=== PATIENT | male | born 1970 | race Caucasian/White ===

== ENCOUNTER 2021-06-12 11:06 | Inpatient (IN) | payer OTHER ==
[2021-06-12 11:37] VITALS: BMI 28.4
[2021-06-12] MEDS ORDERED: MENTHOL/PHENOL 1 EACH UD MM PRN (12:21)
[2021-06-12] MEDS ORDERED: LORazepam 1 MG TABLET PO PRN (12:21)
[2021-06-12] MEDS ORDERED: MAG HYDROX/AL HYDROX/SIMETH 30 ML UNIT-DOSE CUP PO PRN (12:21)
[2021-06-12] MEDS ORDERED: METHOCARBAMOL 500 MG TABLET PO PRN (12:21)
[2021-06-12] MEDS ORDERED: ONDANSETRON *ODT* 4 MG TABLET SL PRN (12:21)
[2021-06-12] MEDS ORDERED: MAGNESIUM HYDROX 2400MG/30ML ORAL SUSPENSION 30 ML CUP PO PRN (12:21)
[2021-06-12] MEDS ORDERED: BISMUTH SUBSALICYLATE 524 MG/30 ML PO PRN (12:21)
[2021-06-12] MEDS ORDERED: IBUPROFEN 400 MG TABLET (FP) PO PRN (12:21)
[2021-06-12] MEDS ORDERED: MAGNESIUM CITRATE 300 ML BOTTLE PO PRN (12:21)
[2021-06-12] MEDS ORDERED: ACETAMINOPHEN 325 MG TABLET (FP) PO PRN ×2 (12:21)
[2021-06-12] MEDS: hydrOXYzine PAMOATE 25 MG CAPSULE (FP) PO SCH ×3 (14:30→23:11)
[2021-06-12 15:11] LABS: HEMATOCRIT 42.3 % (35.4-49); HEMOGLOBIN 14.3 GM/dL (11.7-16.9); MCH 29.2 pg (25.7-33.7); MCHC 33.8 g/dl (32.0-35.9); MEAN CELL VOLUME 86.4 fl (80-96); MEAN PLT VOLUME 10.1 fl (7.5-11.1); PLATELET COUNT 272 10^3/uL (134-434); RBC 4.89 M/mm3 (4.00-5.60); RDW 13.5 % (11.9-15.9); WHITE BLOOD COUNT 9.8 K/mm3 (4.0-10.0)
[2021-06-12 15:24] LABS: CALCIUM 9.2 mg/dL (8.5-10.1)
[2021-06-12 15:25] LABS: ALBUMIN 3.6 g/dl (3.4-5.0)
[2021-06-12 15:28] LABS: CREATININE 0.9 mg/dL (0.55-1.3)
[2021-06-12 15:30] LABS: BILIRUBIN,TOTAL 0.5 mg/dL (0.2-1); TOT PROT 6.4 g/dl (6.4-8.2)
[2021-06-12] MEDS: LORazepam 2 MG TABLET PO SCH ×2 (17:56→23:11)
[2021-06-12] MEDS ORDERED: MELATONIN 5 MG TABLETS PO SCH (22:00)
[2021-06-12] MEDS ORDERED: THIAMINE HCL 100 MG TABLET (FP) PO SCH (22:00)
[2021-06-13] MEDS: LORazepam 2 MG TABLET PO SCH ×2 (05:53→10:19)
[2021-06-13] MEDS: hydrOXYzine PAMOATE 25 MG CAPSULE (FP) PO SCH ×3 (05:53→14:00)
[2021-06-13 14:09] VITALS: BP 99/61; PULSE 66; TEMP 97.5
[2021-06-14] MEDS ORDERED: LORazepam 1 MG TABLET PO SCH (05:00)
[2021-06-15] MEDS ORDERED: LORazepam 0.5 MG TABLET PO PRN
[2021-06-15] MEDS ORDERED: LORazepam 0.5 MG TABLET PO SCH (05:00)
[2021-06-16] MEDS ORDERED: LORazepam 0.5 MG TABLET PO ONE (05:00)
== END 2021-06-13 13:38 | disposition left against medical advice (07) | DRG 770 ==
LOC: YASAS 11:06 → Y3N 12:05
PROVIDERS: ADMIT Allergy & Immunology; ATTEND Allergy & Immunology
PROC: HZ2ZZZZ Detoxification Services for Substance Abuse Treatment (ICD-10-PCS; principal; 2021-06-12)
DX: F10.230 Alcohol dependence with withdrawal, uncomplicated (principal); F14.10 Cocaine abuse, uncomplicated
CPT/HCPCS: 36415; 80053; 85027; 86780; C9803; U0003; U0005

== ENCOUNTER 2022-07-07 09:48 | Inpatient (IN) | payer OTHER ==
[2022-07-07 10:43] VITALS: BMI 25.0
[2022-07-07] MEDS ORDERED: chlordiazePOXIDE HCL 25 MG CAPSULE PO PRN (10:59)
[2022-07-07] MEDS ORDERED: MAGNESIUM CITRATE 300 ML BOTTLE PO PRN (11:05)
[2022-07-07] MEDS ORDERED: LOPERAMIDE HCL 2 MG CAPSULE PO PRN (11:05)
[2022-07-07] MEDS ORDERED: ONDANSETRON *ODT* 4 MG TABLET SL PRN (11:05)
[2022-07-07] MEDS ORDERED: IBUPROFEN 400 MG TABLET (FP) PO PRN (11:05)
[2022-07-07] MEDS ORDERED: MAG HYDROX/AL HYDROX/SIMETH 30 ML UNIT-DOSE CUP PO PRN (11:05)
[2022-07-07] MEDS ORDERED: BISMUTH SUBSALICYLATE 262 MG/15 ML BTL PO PRN (11:05)
[2022-07-07] MEDS ORDERED: METHOCARBAMOL 500 MG TABLET PO PRN (11:05)
[2022-07-07] MEDS ORDERED: IBUPROFEN 600 MG TABLET (FP) PO PRN (11:05)
[2022-07-07] MEDS ORDERED: hydrOXYzine PAMOATE 25 MG CAPSULE (FP) PO PRN (11:05)
[2022-07-07] MEDS ORDERED: MAGNESIUM HYDROX 2400MG/30ML ORAL SUSPENSION 30 ML CUP PO PRN (11:05)
[2022-07-07] MEDS ORDERED: NICOTINE 10 MG CARTRIDGE (INHALER) IH PRN (11:05)
[2022-07-07] MEDS ORDERED: ACETAMINOPHEN 325 MG TABLET (FP) PO PRN ×2 (11:05)
[2022-07-07] MEDS ORDERED: DICYCLOMINE HCL 10 MG CAPSULE PO PRN (11:05)
[2022-07-07] MEDS ORDERED: BENZOCAINE/MENTHOL (CHLORASEPTIC ) LOZENGE MM PRN (11:05)
[2022-07-07] MEDS ORDERED: NALOXONE HCL (KLOXXADO) 8 MG SPRAY NS PRN (11:05)
[2022-07-07] MEDS ORDERED: chlordiazePOXIDE HCL 25 MG CAPSULE ONE (11:28)
[2022-07-07] MEDS: chlordiazePOXIDE HCL 25 MG CAPSULE PO SCH ×3 (11:34→22:12)
[2022-07-07 17:25] LABS: HEMATOCRIT 45.8 % (35.4-49); HEMOGLOBIN 15.4 GM/dL (11.7-16.9); MCH 31.4 pg (25.7-33.7); MCHC 33.7 g/dl (32.0-35.9); MEAN CELL VOLUME 93.2 fl (80-96); MEAN PLT VOLUME 8.9 fl (7.5-11.1); PLATELET COUNT 300 10^3/uL (134-434); RBC 4.91 M/mm3 (4.00-5.60); RDW 14.7 % (11.9-15.9); WHITE BLOOD COUNT 8.8 K/mm3 (4.0-10.0)
[2022-07-07] MEDS: THIAMINE HCL 100 MG TABLET (FP) PO SCH (22:12)
[2022-07-07] MEDS: MELATONIN 5 MG TABLETS PO SCH (22:12)
[2022-07-08] MEDS: chlordiazePOXIDE HCL 25 MG CAPSULE PO SCH ×4 (05:17→22:21)
[2022-07-08] MEDS: PRENATAL VITAMINS W/ FOLIC ACID TABLET (FP) PO SCH (10:38)
[2022-07-08 14:34] LABS: ALBUMIN 3.3 g/dl (3.4-5.0); BLOOD UREA NITROGEN 12.7 mg/dL (7-18)
[2022-07-08 14:37] LABS: CREATININE 0.7 mg/dL (0.55-1.3)
[2022-07-08 14:38] LABS: BILIRUBIN,TOTAL 0.5 mg/dL (0.2-1)
[2022-07-08 14:39] LABS: TOT PROT 5.8 g/dl (6.4-8.2)
[2022-07-08] MEDS: THIAMINE HCL 100 MG TABLET (FP) PO SCH (22:21)
[2022-07-08] MEDS: MELATONIN 5 MG TABLETS PO SCH (22:21)
[2022-07-08 23:16] LABS: URINE APPEARANCE CLEAR; URINE BILIRUBIN NEGATIVE (NEGATIVE); URINE COLOR YELLOW; URINE GLUCOSE (UA) NEGATIVE (NEGATIVE); URINE KETONE NEGATIVE (NEGATIVE); URINE LEUK ESTERASE NEGATIVE (NEGATIVE); URINE NITRITE NEGATIVE (NEGATIVE); URINE PROTEIN NEGATIVE (NEGATIVE); URINE UROBILINOGEN 0.2 mg/dL (0.2-1.0)
[2022-07-09] MEDS: chlordiazePOXIDE HCL 25 MG CAPSULE PO SCH ×4 (05:13→22:06)
[2022-07-09] MEDS: PRENATAL VITAMINS W/ FOLIC ACID TABLET (FP) PO SCH (10:36)
[2022-07-09 20:55] VITALS: BP 123/75; PULSE 81; RESP 16; TEMP 97.3
[2022-07-09] MEDS ORDERED: SUVOREXANT 10 MG TABLET PO PRN (22:00)
[2022-07-09] MEDS: MELATONIN 5 MG TABLETS PO SCH (22:07)
[2022-07-09] MEDS: THIAMINE HCL 100 MG TABLET (FP) PO SCH (22:07)
[2022-07-10] MEDS ORDERED: chlordiazePOXIDE HCL 10 MG CAPSULE PO PRN
[2022-07-10] MEDS ORDERED: chlordiazePOXIDE HCL 10 MG CAPSULE PO SCH (05:00)
[2022-07-11] MEDS ORDERED: chlordiazePOXIDE HCL 10 MG CAPSULE PO SCH (05:00)
[2022-07-12] MEDS ORDERED: chlordiazePOXIDE HCL 10 MG CAPSULE PO ONE (05:00)
== END 2022-07-09 23:43 | disposition left against medical advice (07) | DRG 770 ==
LOC: YASAS 09:48 → Y3N 11:40
PROVIDERS: ADMIT Allergy & Immunology; ATTEND Surgery
PROC: HZ2ZZZZ Detoxification Services for Substance Abuse Treatment (ICD-10-PCS; principal; 2022-07-07)
DX: F10.230 Alcohol dependence with withdrawal, uncomplicated (principal); F14.20 Cocaine dependence, uncomplicated; F12.10 Cannabis abuse, uncomplicated; F17.210 Nicotine dependence, cigarettes, uncomplicated; G47.00 Insomnia, unspecified; R73.03 Prediabetes
CPT/HCPCS: 36415; 80053; 81003; 82962; 85027; 86780; 87811; C9803-CS; Q0162; U0003; U0005

== ENCOUNTER 2022-07-23 02:12 | Inpatient (IN) | payer OTHER ==
[2022-07-23 02:42] VITALS: BMI 25.0
[2022-07-23] MEDS ORDERED: LOPERAMIDE HCL 2 MG CAPSULE PO PRN (02:49)
[2022-07-23] MEDS ORDERED: NALOXONE HCL (KLOXXADO) 8 MG SPRAY NS PRN (02:49)
[2022-07-23] MEDS ORDERED: IBUPROFEN 400 MG TABLET (FP) PO PRN (02:49)
[2022-07-23] MEDS ORDERED: ACETAMINOPHEN 325 MG TABLET (FP) PO PRN ×2 (02:49)
[2022-07-23] MEDS ORDERED: chlordiazePOXIDE HCL 25 MG CAPSULE PO PRN (02:49)
[2022-07-23] MEDS ORDERED: MAGNESIUM CITRATE 300 ML BOTTLE PO PRN (02:49)
[2022-07-23] MEDS ORDERED: ONDANSETRON *ODT* 4 MG TABLET SL PRN (02:49)
[2022-07-23] MEDS ORDERED: P-EPHED 60MG/TRIPROLIDI 2.5MG TABLET PO PRN (02:49)
[2022-07-23] MEDS ORDERED: DICYCLOMINE HCL 10 MG CAPSULE PO PRN (02:49)
[2022-07-23] MEDS ORDERED: IBUPROFEN 600 MG TABLET (FP) PO PRN (02:49)
[2022-07-23] MEDS ORDERED: BISMUTH SUBSALICYLATE 524 MG/30 ML PO PRN (02:49)
[2022-07-23] MEDS ORDERED: chlordiazePOXIDE HCL 25 MG CAPSULE PO ONE (02:49)
[2022-07-23] MEDS ORDERED: MAGNESIUM HYDROX 2400MG/30ML ORAL SUSPENSION 30 ML CUP PO PRN (02:49)
[2022-07-23] MEDS ORDERED: NICOTINE POLACRILEX 2 MG GUM BUC PRN (02:49)
[2022-07-23] MEDS ORDERED: BENZOCAINE/MENTHOL (CHLORASEPTIC ) LOZENGE MM PRN (02:49)
[2022-07-23] MEDS ORDERED: MAG HYDROX/AL HYDROX/SIMETH 30 ML UNIT-DOSE CUP PO PRN (02:49)
[2022-07-23] MEDS: chlordiazePOXIDE HCL 25 MG CAPSULE PO SCH ×4 (05:25→22:55)
[2022-07-23] MEDS: PRENATAL VITAMINS W/ FOLIC ACID TABLET (FP) PO SCH (10:33)
[2022-07-23] MEDS: NICOTINE 21 MG/24 HOURS TOPICAL PATCH TD SCH (10:35)
[2022-07-23] MEDS: THIAMINE HCL 100 MG TABLET (FP) PO SCH (22:55)
[2022-07-23] MEDS: MELATONIN 5 MG TABLETS PO SCH (22:55)
[2022-07-24] MEDS: chlordiazePOXIDE HCL 25 MG CAPSULE PO SCH ×4 (05:27→22:31)
[2022-07-24] MEDS: NICOTINE 21 MG/24 HOURS TOPICAL PATCH TD SCH (10:10)
[2022-07-24] MEDS: PRENATAL VITAMINS W/ FOLIC ACID TABLET (FP) PO SCH (10:10)
[2022-07-24 11:56] LABS: HEMATOCRIT 46.9 % (35.4-49); HEMOGLOBIN 15.7 GM/dL (11.7-16.9); MCH 31.4 pg (25.7-33.7); MCHC 33.6 g/dl (32.0-35.9); MEAN CELL VOLUME 93.4 fl (80-96); MEAN PLT VOLUME 9.2 fl (7.5-11.1); PLATELET COUNT 333 10^3/uL (134-434); RBC 5.02 M/mm3 (4.00-5.60); WHITE BLOOD COUNT 7.4 K/mm3 (4.0-10.0)
[2022-07-24 12:12] LABS: CALCIUM 8.9 mg/dL (8.5-10.1)
[2022-07-24 12:14] LABS: ALBUMIN 3.3 g/dl (3.4-5.0); BLOOD UREA NITROGEN 13.1 mg/dL (7-18)
[2022-07-24 12:16] LABS: CREATININE 0.6 mg/dL (0.55-1.3)
[2022-07-24 12:18] LABS: BILIRUBIN,TOTAL 0.3 mg/dL (0.2-1); TOT PROT 5.7 g/dl (6.4-8.2)
[2022-07-24] MEDS: THIAMINE HCL 100 MG TABLET (FP) PO SCH (22:30)
[2022-07-24] MEDS: MELATONIN 5 MG TABLETS PO SCH (22:30)
[2022-07-24] MEDS: SUVOREXANT 10 MG TABLET PO PRN (22:31)
[2022-07-25] MEDS ORDERED: chlordiazePOXIDE HCL 10 MG CAPSULE PO PRN
[2022-07-25] MEDS: chlordiazePOXIDE HCL 10 MG CAPSULE PO SCH ×4 (05:31→22:15)
[2022-07-25] MEDS: PRENATAL VITAMINS W/ FOLIC ACID TABLET (FP) PO SCH (11:11)
[2022-07-25] MEDS: NICOTINE 21 MG/24 HOURS TOPICAL PATCH TD SCH (11:11)
[2022-07-25] MEDS: METHOCARBAMOL 500 MG TABLET PO PRN ×2 (11:12→17:36)
[2022-07-25] MEDS: MELATONIN 5 MG TABLETS PO SCH (22:15)
[2022-07-25] MEDS: SUVOREXANT 10 MG TABLET PO PRN (22:15)
[2022-07-25] MEDS: THIAMINE HCL 100 MG TABLET (FP) PO SCH (22:15)
[2022-07-25] MEDS: guaiFENesin 200 MG/10 ML 10 ML UNIT-DOSE CUPS PO PRN (23:35)
[2022-07-26] MEDS: chlordiazePOXIDE HCL 10 MG CAPSULE PO SCH ×2 (05:30→17:46)
[2022-07-26] MEDS: METHOCARBAMOL 500 MG TABLET PO PRN ×3 (05:31→23:49)
[2022-07-26] MEDS: PRENATAL VITAMINS W/ FOLIC ACID TABLET (FP) PO SCH (10:39)
[2022-07-26] MEDS: guaiFENesin 200 MG/10 ML 10 ML UNIT-DOSE CUPS PO PRN (10:39)
[2022-07-26] MEDS: NICOTINE 21 MG/24 HOURS TOPICAL PATCH TD SCH (10:39)
[2022-07-26] MEDS ORDERED: hydrOXYzine PAMOATE 50 MG CAPSULE (FP) PO ONE (15:18)
[2022-07-26] MEDS: THIAMINE HCL 100 MG TABLET (FP) PO SCH (21:00)
[2022-07-26] MEDS: SUVOREXANT 10 MG TABLET PO PRN (21:00)
[2022-07-26] MEDS: MELATONIN 5 MG TABLETS PO SCH (21:00)
[2022-07-26] MEDS ORDERED: hydrOXYzine PAMOATE 25 MG CAPSULE (FP) PO PRN (22:00)
[2022-07-27] MEDS ORDERED: chlordiazePOXIDE HCL 10 MG CAPSULE PO ONE (05:00)
[2022-07-27] MEDS: METHOCARBAMOL 500 MG TABLET PO PRN (06:12)
[2022-07-27 09:09] VITALS: BP 125/86; PULSE 67; RESP 18; TEMP 97.7
[2022-07-27] MEDS: PRENATAL VITAMINS W/ FOLIC ACID TABLET (FP) PO SCH (10:30)
[2022-07-27] MEDS: NICOTINE 21 MG/24 HOURS TOPICAL PATCH TD SCH (10:31)
[2022-07-27 15:41] LABS: PH,URINE 5.5 (5.0-8.0); URINE APPEARANCE CLEAR; URINE BILIRUBIN NEGATIVE (NEGATIVE); URINE COLOR YELLOW; URINE GLUCOSE (UA) NEGATIVE (NEGATIVE); URINE KETONE NEGATIVE (NEGATIVE); URINE LEUK ESTERASE NEGATIVE (NEGATIVE); URINE NITRITE NEGATIVE (NEGATIVE); URINE PROTEIN NEGATIVE (NEGATIVE); URINE UROBILINOGEN 0.2 mg/dL (0.2-1.0)
== END 2022-07-27 12:55 | disposition other institution (70) | DRG 774 ==
LOC: YASAS 02:12 → Y3N 02:51
PROVIDERS: ADMIT Allergy & Immunology; ATTEND Allergy & Immunology
PROC: HZ2ZZZZ Detoxification Services for Substance Abuse Treatment (ICD-10-PCS; principal; 2022-07-23)
DX: F10.230 Alcohol dependence with withdrawal, uncomplicated (principal); F14.20 Cocaine dependence, uncomplicated; F12.20 Cannabis dependence, uncomplicated; F17.210 Nicotine dependence, cigarettes, uncomplicated; G47.00 Insomnia, unspecified; E87.8 Other disorders of electrolyte and fluid balance, not elsewhere classified; E46 Unspecified protein-calorie malnutrition; Z68.25 Body mass index [BMI] 25.0-25.9, adult; Z56.0 Unemployment, unspecified; Z59.00 Homelessness unspecified
CPT/HCPCS: 36415; 80053; 81003; 85027; 86780; C9803-CS; U0003; U0005

== ENCOUNTER 2022-08-07 05:33 | Inpatient (IN) | payer OTHER ==
[2022-08-07] MEDS ORDERED: LOPERAMIDE HCL 2 MG CAPSULE PO PRN (06:22)
[2022-08-07] MEDS ORDERED: MAG HYDROX/AL HYDROX/SIMETH 30 ML UNIT-DOSE CUP PO PRN (06:22)
[2022-08-07] MEDS ORDERED: IBUPROFEN 400 MG TABLET (FP) PO PRN (06:22)
[2022-08-07] MEDS ORDERED: MAGNESIUM HYDROX 2400MG/30ML ORAL SUSPENSION 30 ML CUP PO PRN (06:22)
[2022-08-07] MEDS ORDERED: P-EPHED 60MG/TRIPROLIDI 2.5MG TABLET PO PRN (06:22)
[2022-08-07] MEDS ORDERED: BENZOCAINE/MENTHOL (CHLORASEPTIC ) LOZENGE MM PRN (06:22)
[2022-08-07] MEDS ORDERED: DICYCLOMINE HCL 10 MG CAPSULE PO PRN (06:22)
[2022-08-07] MEDS ORDERED: ACETAMINOPHEN 325 MG TABLET (FP) PO PRN ×2 (06:22)
[2022-08-07] MEDS ORDERED: guaiFENesin 200 MG/10 ML 10 ML UNIT-DOSE CUPS PO PRN (06:22)
[2022-08-07] MEDS ORDERED: ONDANSETRON *ODT* 4 MG TABLET SL PRN (06:22)
[2022-08-07] MEDS ORDERED: IBUPROFEN 600 MG TABLET (FP) PO PRN (06:22)
[2022-08-07] MEDS ORDERED: BISMUTH SUBSALICYLATE 524 MG/30 ML PO PRN (06:22)
[2022-08-07] MEDS ORDERED: POLYETHYLENE GLYCOL (HEALTHYLAX) 3350 17 GM PACKET PO PRN (06:22)
[2022-08-07] MEDS ORDERED: chlordiazePOXIDE HCL 25 MG CAPSULE PO PRN (06:24)
[2022-08-07 07:15] VITALS: BMI 26.3
[2022-08-07] MEDS ORDERED: chlordiazePOXIDE HCL 25 MG CAPSULE PO ONE (08:00)
[2022-08-07] MEDS ORDERED: chlordiazePOXIDE HCL 25 MG CAPSULE ONE (09:54)
[2022-08-07] MEDS: chlordiazePOXIDE HCL 25 MG CAPSULE PO SCH ×3 (10:13→22:05)
[2022-08-07] MEDS: PRENATAL VITAMINS W/ FOLIC ACID TABLET (FP) PO SCH (14:11)
[2022-08-07] MEDS: THIAMINE HCL 100 MG TABLET (FP) PO SCH (22:05)
[2022-08-07] MEDS: MELATONIN 5 MG TABLETS PO PRN (22:06)
[2022-08-07] MEDS: NICOTINE POLACRILEX 2 MG GUM BUC PRN (22:08)
[2022-08-08] MEDS: chlordiazePOXIDE HCL 25 MG CAPSULE PO SCH ×4 (05:33→22:05)
[2022-08-08] MEDS: NICOTINE POLACRILEX 2 MG GUM BUC PRN ×2 (10:41→18:09)
[2022-08-08] MEDS: PRENATAL VITAMINS W/ FOLIC ACID TABLET (FP) PO SCH (10:41)
[2022-08-08] MEDS: METHOCARBAMOL 500 MG TABLET PO PRN (18:05)
[2022-08-08] MEDS: MELATONIN 5 MG TABLETS PO PRN (22:05)
[2022-08-08] MEDS: THIAMINE HCL 100 MG TABLET (FP) PO SCH (22:05)
[2022-08-08] MEDS: hydrOXYzine PAMOATE 25 MG CAPSULE (FP) PO PRN (22:06)
[2022-08-09] MEDS: chlordiazePOXIDE HCL 25 MG CAPSULE PO SCH ×2 (05:49→10:29)
[2022-08-09] MEDS: METHOCARBAMOL 500 MG TABLET PO PRN (05:50)
[2022-08-09] MEDS: PRENATAL VITAMINS W/ FOLIC ACID TABLET (FP) PO SCH (10:29)
[2022-08-09] MEDS: hydrOXYzine PAMOATE 25 MG CAPSULE (FP) PO PRN (10:29)
[2022-08-09 13:06] VITALS: BP 126/77; PULSE 16; RESP 82; TEMP 97.5
[2022-08-10] MEDS ORDERED: chlordiazePOXIDE HCL 10 MG CAPSULE PO PRN
[2022-08-10] MEDS ORDERED: chlordiazePOXIDE HCL 10 MG CAPSULE PO SCH (05:00)
[2022-08-11] MEDS ORDERED: chlordiazePOXIDE HCL 10 MG CAPSULE PO SCH (05:00)
[2022-08-12] MEDS ORDERED: chlordiazePOXIDE HCL 10 MG CAPSULE PO ONE (05:00)
== END 2022-08-09 14:26 | disposition left against medical advice (07) | DRG 770 ==
LOC: YASAS 05:33 → Y3N 10:30
PROVIDERS: ADMIT Allergy & Immunology; ATTEND Surgery
PROC: HZ2ZZZZ Detoxification Services for Substance Abuse Treatment (ICD-10-PCS; principal; 2022-08-07)
DX: F10.230 Alcohol dependence with withdrawal, uncomplicated (principal); F14.10 Cocaine abuse, uncomplicated; F12.10 Cannabis abuse, uncomplicated; F10.220 Alcohol dependence with intoxication, uncomplicated; F17.210 Nicotine dependence, cigarettes, uncomplicated; Z91.013 Allergy to seafood
CPT/HCPCS: 87811; C9803-CS; U0003; U0005

== ENCOUNTER 2022-08-19 02:13 | Inpatient (IN) | payer OTHER ==
[2022-08-19 02:35] VITALS: BMI 26.3
[2022-08-19] MEDS ORDERED: LOPERAMIDE HCL 2 MG CAPSULE PO PRN (05:13)
[2022-08-19] MEDS ORDERED: BENZOCAINE/MENTHOL (CHLORASEPTIC ) LOZENGE MM PRN (05:13)
[2022-08-19] MEDS ORDERED: IBUPROFEN 600 MG TABLET (FP) PO PRN (05:13)
[2022-08-19] MEDS ORDERED: ACETAMINOPHEN 325 MG TABLET (FP) PO PRN ×2 (05:13)
[2022-08-19] MEDS ORDERED: NALOXONE HCL (KLOXXADO) 8 MG SPRAY NS PRN (05:13)
[2022-08-19] MEDS ORDERED: MAG HYDROX/AL HYDROX/SIMETH 30 ML UNIT-DOSE CUP PO PRN (05:13)
[2022-08-19] MEDS ORDERED: BISMUTH SUBSALICYLATE 524 MG/30 ML PO PRN (05:13)
[2022-08-19] MEDS ORDERED: DICYCLOMINE HCL 10 MG CAPSULE PO PRN (05:13)
[2022-08-19] MEDS ORDERED: IBUPROFEN 400 MG TABLET (FP) PO PRN (05:13)
[2022-08-19] MEDS ORDERED: POLYETHYLENE GLYCOL (HEALTHYLAX) 3350 17 GM PACKET PO PRN (05:13)
[2022-08-19] MEDS ORDERED: MAGNESIUM HYDROX 2400MG/30ML ORAL SUSPENSION 30 ML CUP PO PRN (05:13)
[2022-08-19] MEDS ORDERED: ONDANSETRON *ODT* 4 MG TABLET SL PRN (05:13)
[2022-08-19 09:41] LABS: HEMATOCRIT 43.6 % (35.4-49); MCH 31.6 pg (25.7-33.7); MCHC 34.3 g/dl (32.0-35.9); MEAN CELL VOLUME 92.2 fl (80-96); MEAN PLT VOLUME 8.7 fl (7.5-11.1); PLATELET COUNT 345 10^3/uL (134-434); RBC 4.73 M/mm3 (4.00-5.60); RDW 13.3 % (11.9-15.9); WHITE BLOOD COUNT 7.7 K/mm3 (4.0-10.0)
[2022-08-19] MEDS ORDERED: chlordiazePOXIDE HCL 25 MG CAPSULE PO PRN (09:50)
[2022-08-19 09:59] LABS: ALBUMIN 3.1 g/dl (3.4-5.0); BILIRUBIN,TOTAL 0.4 mg/dL (0.2-1); TOT PROT 5.8 g/dl (6.4-8.2)
[2022-08-19 10:00] LABS: CALCIUM 8.9 mg/dL (8.5-10.1)
[2022-08-19 10:01] LABS: BLOOD UREA NITROGEN 12.9 mg/dL (7-18)
[2022-08-19 10:02] LABS: CREATININE 0.8 mg/dL (0.55-1.3)
[2022-08-19] MEDS: PRENATAL VITAMINS W/ FOLIC ACID TABLET (FP) PO SCH (10:16)
[2022-08-19] MEDS: chlordiazePOXIDE HCL 25 MG CAPSULE PO SCH ×3 (10:16→22:14)
[2022-08-19] MEDS: MELATONIN 5 MG TABLETS PO SCH (22:14)
[2022-08-19] MEDS: THIAMINE HCL 100 MG TABLET (FP) PO SCH (22:14)
[2022-08-20] MEDS: chlordiazePOXIDE HCL 25 MG CAPSULE PO SCH ×4 (05:25→22:03)
[2022-08-20] MEDS: PRENATAL VITAMINS W/ FOLIC ACID TABLET (FP) PO SCH (10:07)
[2022-08-20] MEDS: THIAMINE HCL 100 MG TABLET (FP) PO SCH (22:04)
[2022-08-20] MEDS: MELATONIN 5 MG TABLETS PO SCH (22:04)
[2022-08-21] MEDS: chlordiazePOXIDE HCL 25 MG CAPSULE PO SCH ×2 (05:15→10:13)
[2022-08-21] MEDS: METHOCARBAMOL 500 MG TABLET PO PRN ×2 (05:16→10:18)
[2022-08-21 09:25] VITALS: RESP 16
[2022-08-21] MEDS: PRENATAL VITAMINS W/ FOLIC ACID TABLET (FP) PO SCH (10:12)
[2022-08-21 13:08] VITALS: BP 119/75; PULSE 78; TEMP 97.1
[2022-08-22] MEDS ORDERED: chlordiazePOXIDE HCL 10 MG CAPSULE PO PRN
[2022-08-22] MEDS ORDERED: chlordiazePOXIDE HCL 10 MG CAPSULE PO SCH (05:00)
[2022-08-23] MEDS ORDERED: chlordiazePOXIDE HCL 10 MG CAPSULE PO SCH (05:00)
[2022-08-24] MEDS ORDERED: chlordiazePOXIDE HCL 10 MG CAPSULE PO ONE (05:00)
== END 2022-08-21 13:00 | disposition left against medical advice (07) | DRG 770 ==
LOC: YASAS 02:13 → UNDOADMIN 06:01 → Y3N 06:01
PROVIDERS: ADMIT Allergy & Immunology; ATTEND Surgery
PROC: HZ2ZZZZ Detoxification Services for Substance Abuse Treatment (ICD-10-PCS; principal; 2022-08-19)
DX: F10.230 Alcohol dependence with withdrawal, uncomplicated (principal); F14.20 Cocaine dependence, uncomplicated; F12.20 Cannabis dependence, uncomplicated; F17.210 Nicotine dependence, cigarettes, uncomplicated; G47.00 Insomnia, unspecified; R73.03 Prediabetes
CPT/HCPCS: 36415; 80053; 82947; 83036; 85027; 86780; 93005; 93010; C9803-CS; U0003; U0005

== ENCOUNTER 2022-09-14 02:31 | Inpatient (IN) | payer OTHER ==
[2022-09-14 03:03] VITALS: BMI 24.5
[2022-09-14] MEDS ORDERED: BISMUTH SUBSALICYLATE 524 MG/30 ML PO PRN (03:24)
[2022-09-14] MEDS ORDERED: POLYETHYLENE GLYCOL (HEALTHYLAX) 3350 17 GM PACKET PO PRN (03:24)
[2022-09-14] MEDS ORDERED: NICOTINE POLACRILEX 2 MG GUM BUC PRN (03:24)
[2022-09-14] MEDS ORDERED: NALOXONE HCL (KLOXXADO) 8 MG SPRAY NS PRN (03:24)
[2022-09-14] MEDS ORDERED: IBUPROFEN 600 MG TABLET (FP) PO PRN (03:24)
[2022-09-14] MEDS ORDERED: ACETAMINOPHEN 325 MG TABLET (FP) PO PRN ×2 (03:24)
[2022-09-14] MEDS ORDERED: METHOCARBAMOL 500 MG TABLET PO PRN (03:24)
[2022-09-14] MEDS ORDERED: MAGNESIUM HYDROX 2400MG/30ML ORAL SUSPENSION 30 ML CUP PO PRN (03:24)
[2022-09-14] MEDS ORDERED: ONDANSETRON *ODT* 4 MG TABLET SL PRN (03:24)
[2022-09-14] MEDS ORDERED: MAG HYDROX/AL HYDROX/SIMETH 30 ML UNIT-DOSE CUP PO PRN (03:24)
[2022-09-14] MEDS ORDERED: LOPERAMIDE HCL 2 MG CAPSULE PO PRN (03:24)
[2022-09-14] MEDS ORDERED: P-EPHED 60MG/TRIPROLIDI 2.5MG TABLET PO PRN (03:24)
[2022-09-14] MEDS ORDERED: DICYCLOMINE HCL 10 MG CAPSULE PO PRN (03:24)
[2022-09-14] MEDS ORDERED: BENZOCAINE/MENTHOL (CHLORASEPTIC ) LOZENGE MM PRN (03:24)
[2022-09-14] MEDS ORDERED: IBUPROFEN 400 MG TABLET (FP) PO PRN (03:24)
[2022-09-14] MEDS ORDERED: chlordiazePOXIDE HCL 25 MG CAPSULE ONE (05:49)
[2022-09-14] MEDS: chlordiazePOXIDE HCL 25 MG CAPSULE PO SCH ×4 (05:54→22:04)
[2022-09-14] MEDS: NICOTINE 21 MG/24 HOURS TOPICAL PATCH TD SCH (10:18)
[2022-09-14] MEDS: PRENATAL VITAMINS W/ FOLIC ACID TABLET (FP) PO SCH (10:18)
[2022-09-14] MEDS: THIAMINE HCL 100 MG TABLET (FP) PO SCH (22:04)
[2022-09-14] MEDS: MELATONIN 5 MG TABLETS PO SCH (22:04)
[2022-09-15 00:37] LABS: PH,URINE 6.5 (5.0-8.0); URINE APPEARANCE CLOUDY; URINE BILIRUBIN NEGATIVE (NEGATIVE); URINE COLOR YELLOW; URINE GLUCOSE (UA) NEGATIVE (NEGATIVE); URINE KETONE NEGATIVE (NEGATIVE); URINE LEUK ESTERASE NEGATIVE (NEGATIVE); URINE NITRITE NEGATIVE (NEGATIVE); URINE PROTEIN NEGATIVE (NEGATIVE); URINE UROBILINOGEN 0.2 mg/dL (0.2-1.0)
[2022-09-15] MEDS: chlordiazePOXIDE HCL 25 MG CAPSULE PO PRN ×2 (06:07→21:09)
[2022-09-15] MEDS: chlordiazePOXIDE HCL 25 MG CAPSULE PO SCH ×4 (06:12→22:58)
[2022-09-15] MEDS: PRENATAL VITAMINS W/ FOLIC ACID TABLET (FP) PO SCH (10:25)
[2022-09-15] MEDS: NICOTINE 21 MG/24 HOURS TOPICAL PATCH TD SCH (10:25)
[2022-09-15] MEDS ORDERED: guaiFENesin 200 MG/10 ML 10 ML UNIT-DOSE CUPS PO PRN (12:35)
[2022-09-15 13:42] LABS: HEMATOCRIT 44.9 % (35.4-49); HEMOGLOBIN 14.9 GM/dL (11.7-16.9); MCH 31.3 pg (25.7-33.7); MCHC 33.2 g/dl (32.0-35.9); MEAN CELL VOLUME 94.2 fl (80-96); MEAN PLT VOLUME 9.2 fl (7.5-11.1); PLATELET COUNT 296 10^3/uL (134-434); RBC 4.77 M/mm3 (4.00-5.60); RDW 13.6 % (11.9-15.9); WHITE BLOOD COUNT 6.5 K/mm3 (4.0-10.0)
[2022-09-15 14:56] LABS: ALBUMIN 2.9 g/dl (3.4-5.0); BLOOD UREA NITROGEN 11.7 mg/dL (7-18); CALCIUM 8.6 mg/dL (8.5-10.1)
[2022-09-15 14:59] LABS: BILIRUBIN,TOTAL 0.7 mg/dL (0.2-1); TOT PROT 5.5 g/dl (6.4-8.2)
[2022-09-15 15:00] LABS: CREATININE 0.7 mg/dL (0.55-1.3)
[2022-09-15] MEDS ORDERED: traZODone HCL 50 MG TABLET (FP) PO SCH (22:00)
[2022-09-15] MEDS: THIAMINE HCL 100 MG TABLET (FP) PO SCH (22:58)
[2022-09-15] MEDS: MELATONIN 5 MG TABLETS PO SCH (22:58)
[2022-09-16] MEDS ORDERED: chlordiazePOXIDE HCL 10 MG CAPSULE PO PRN
[2022-09-16] MEDS: chlordiazePOXIDE HCL 10 MG CAPSULE PO SCH ×3 (06:23→10:35)
[2022-09-16 08:56] VITALS: BP 155/86; PULSE 76; RESP 18; TEMP 97.3
[2022-09-16] MEDS: PRENATAL VITAMINS W/ FOLIC ACID TABLET (FP) PO SCH (10:17)
[2022-09-16] MEDS: NICOTINE 21 MG/24 HOURS TOPICAL PATCH TD SCH (10:18)
[2022-09-17] MEDS ORDERED: chlordiazePOXIDE HCL 10 MG CAPSULE PO SCH (05:00)
[2022-09-18] MEDS ORDERED: chlordiazePOXIDE HCL 10 MG CAPSULE PO ONE (05:00)
== END 2022-09-16 14:22 | disposition left against medical advice (07) | DRG 770 ==
LOC: YASAS 02:31 → Y3N 05:53
PROVIDERS: ADMIT Allergy & Immunology; ATTEND Allergy & Immunology
PROC: HZ2ZZZZ Detoxification Services for Substance Abuse Treatment (ICD-10-PCS; principal; 2022-09-14)
DX: F10.230 Alcohol dependence with withdrawal, uncomplicated (principal); F14.20 Cocaine dependence, uncomplicated; F17.210 Nicotine dependence, cigarettes, uncomplicated; F10.282 Alcohol dependence with alcohol-induced sleep disorder; F19.24 Other psychoactive substance dependence with psychoactive substance-induced mood disorder; U07.1 COVID-19; R73.9 Hyperglycemia, unspecified; R23.4 Changes in skin texture; R05.8 Other specified cough; F91.8 Other conduct disorders; Z91.199 Patient's noncompliance with other medical treatment and regimen due to unspecified reason
CPT/HCPCS: 36415; 80053; 81003; 85027; 86780; C9803-CS; U0003; U0005

== ENCOUNTER 2022-11-23 23:31 | Inpatient (IN) | payer OTHER ==
[2022-11-23 23:52] VITALS: BMI 23.5
[2022-11-24] MEDS ORDERED: IBUPROFEN 600 MG TABLET (FP) PO PRN (01:29)
[2022-11-24] MEDS ORDERED: ONDANSETRON *ODT* 4 MG TABLET SL PRN (01:29)
[2022-11-24] MEDS ORDERED: DICYCLOMINE HCL 10 MG CAPSULE PO PRN (01:29)
[2022-11-24] MEDS ORDERED: BISMUTH SUBSALICYLATE 524 MG/30 ML PO PRN (01:29)
[2022-11-24] MEDS ORDERED: ACETAMINOPHEN 325 MG TABLET (FP) PO PRN (01:29)
[2022-11-24] MEDS ORDERED: BENZOCAINE/MENTHOL (CHLORASEPTIC ) LOZENGE MM PRN (01:29)
[2022-11-24] MEDS ORDERED: MAG HYDROX/AL HYDROX/SIMETH 30 ML UNIT-DOSE CUP PO PRN (01:29)
[2022-11-24] MEDS ORDERED: MAGNESIUM HYDROX 2400MG/30ML ORAL SUSPENSION 30 ML CUP PO PRN (01:29)
[2022-11-24] MEDS ORDERED: IBUPROFEN 400 MG TABLET (FP) PO PRN (01:29)
[2022-11-24] MEDS ORDERED: NALOXONE HCL (KLOXXADO) 8 MG SPRAY NS PRN (01:29)
[2022-11-24] MEDS ORDERED: POLYETHYLENE GLYCOL (HEALTHYLAX) 3350 17 GM PACKET PO PRN (01:29)
[2022-11-24] MEDS ORDERED: LOPERAMIDE HCL 2 MG CAPSULE PO PRN (01:29)
[2022-11-24] MEDS ORDERED: chlordiazePOXIDE HCL 25 MG CAPSULE PO PRN (01:57)
[2022-11-24] MEDS: METHOCARBAMOL 500 MG TABLET PO PRN ×2 (02:22→22:24)
[2022-11-24] MEDS: ACETAMINOPHEN 325 MG TABLET (FP) PO PRN ×2 (02:23→10:10)
[2022-11-24] MEDS: chlordiazePOXIDE HCL 25 MG CAPSULE PO SCH ×4 (05:27→22:22)
[2022-11-24] MEDS: PRENATAL VITAMINS W/ FOLIC ACID TABLET (FP) PO SCH (10:09)
[2022-11-24] MEDS: NICOTINE 21 MG/24 HOURS TOPICAL PATCH TD SCH (10:10)
[2022-11-24] MEDS: NICOTINE POLACRILEX 2 MG GUM BUC PRN (17:37)
[2022-11-24] MEDS: THIAMINE HCL 100 MG TABLET (FP) PO SCH (22:22)
[2022-11-24] MEDS: MELATONIN 5 MG TABLETS PO SCH (22:22)
[2022-11-25] MEDS: chlordiazePOXIDE HCL 25 MG CAPSULE PO SCH ×4 (05:11→22:07)
[2022-11-25] MEDS: ACETAMINOPHEN 325 MG TABLET (FP) PO PRN (05:12)
[2022-11-25] MEDS: NICOTINE 21 MG/24 HOURS TOPICAL PATCH TD SCH (10:39)
[2022-11-25] MEDS: PRENATAL VITAMINS W/ FOLIC ACID TABLET (FP) PO SCH (10:42)
[2022-11-25] MEDS: METHOCARBAMOL 500 MG TABLET PO PRN ×2 (10:42→22:08)
[2022-11-25 11:22] LABS: HEMATOCRIT 41.1 % (35.4-49); MCH 31.1 pg (25.7-33.7); MCHC 34.2 g/dl (32.0-35.9); MEAN PLT VOLUME 9.1 fl (7.5-11.1); PLATELET COUNT 303 10^3/uL (134-434); RBC 4.51 M/mm3 (4.00-5.60); RDW 13.2 % (11.9-15.9); WHITE BLOOD COUNT 8.6 K/mm3 (4.0-10.0)
[2022-11-25 12:13] LABS: BLOOD UREA NITROGEN 12.4 mg/dL (7-18)
[2022-11-25 12:15] LABS: CALCIUM 8.7 mg/dL (8.5-10.1)
[2022-11-25 12:19] LABS: CREATININE 0.8 mg/dL (0.55-1.3)
[2022-11-25 12:20] LABS: BILIRUBIN,TOTAL 0.2 mg/dL (0.2-1); TOT PROT 5.6 g/dl (6.4-8.2)
[2022-11-25] MEDS ORDERED: METHOCARBAMOL 500 MG TABLET PO ONE (14:37)
[2022-11-25] MEDS: hydrOXYzine PAMOATE 25 MG CAPSULE (FP) PO PRN (17:22)
[2022-11-25] MEDS: NICOTINE POLACRILEX 2 MG GUM BUC PRN (18:14)
[2022-11-25] MEDS ORDERED: cloNIDine HCL 0.1 MG TABLET PO ONE (19:50)
[2022-11-25] MEDS: THIAMINE HCL 100 MG TABLET (FP) PO SCH (22:06)
[2022-11-25] MEDS: MELATONIN 5 MG TABLETS PO SCH (22:06)
[2022-11-26] MEDS ORDERED: chlordiazePOXIDE HCL 10 MG CAPSULE PO PRN
[2022-11-26] MEDS: hydrOXYzine PAMOATE 25 MG CAPSULE (FP) PO PRN ×2 (00:47→10:39)
[2022-11-26] MEDS: METHOCARBAMOL 500 MG TABLET PO PRN ×2 (05:25→10:40)
[2022-11-26] MEDS: chlordiazePOXIDE HCL 10 MG CAPSULE PO SCH ×2 (05:25→10:39)
[2022-11-26 06:25] VITALS: RESP 16
[2022-11-26 09:06] VITALS: BP 103/63; PULSE 78; TEMP 96.9
[2022-11-26] MEDS: NICOTINE 21 MG/24 HOURS TOPICAL PATCH TD SCH (10:39)
[2022-11-26] MEDS: PRENATAL VITAMINS W/ FOLIC ACID TABLET (FP) PO SCH (10:39)
[2022-11-27] MEDS ORDERED: chlordiazePOXIDE HCL 10 MG CAPSULE PO SCH (05:00)
[2022-11-28] MEDS ORDERED: chlordiazePOXIDE HCL 10 MG CAPSULE PO ONE (05:00)
== END 2022-11-26 12:23 | disposition left against medical advice (07) | DRG 770 ==
LOC: YASAS 23:31 → Y3N 11-24 01:49
PROVIDERS: ADMIT Allergy & Immunology; ATTEND Surgery
PROC: HZ2ZZZZ Detoxification Services for Substance Abuse Treatment (ICD-10-PCS; principal; 2022-11-24)
DX: F10.230 Alcohol dependence with withdrawal, uncomplicated (principal); F14.20 Cocaine dependence, uncomplicated; F12.20 Cannabis dependence, uncomplicated; F17.210 Nicotine dependence, cigarettes, uncomplicated
CPT/HCPCS: 36415; 80053; 85027; 86780; 87811; C9803-CS; U0003; U0005

== ENCOUNTER 2023-02-17 06:30 | Inpatient (IN) | payer OTHER ==
[2023-02-17 06:59] VITALS: BMI 25.3
[2023-02-17] MEDS ORDERED: AMMONIUM LACTATE 12% LOTION 225 GM BOTTLE TP PRN (08:29)
[2023-02-17] MEDS ORDERED: DICYCLOMINE HCL 10 MG CAPSULE PO PRN (08:29)
[2023-02-17] MEDS ORDERED: NALOXONE HCL (KLOXXADO) 8 MG SPRAY NS PRN (08:29)
[2023-02-17] MEDS ORDERED: MAG HYDROX/AL HYDROX/SIMETH 30 ML UNIT-DOSE CUP PO PRN (08:29)
[2023-02-17] MEDS ORDERED: BISMUTH SUBSALICYLATE 524 MG/30 ML PO PRN (08:29)
[2023-02-17] MEDS ORDERED: ACETAMINOPHEN 325 MG TABLET (FP) PO PRN (08:29)
[2023-02-17] MEDS ORDERED: BENZONATATE 200 MG CAPSULE PO PRN (08:29)
[2023-02-17] MEDS ORDERED: COLLOIDAL OATMEAL 1 BAR EACH TP PRN (08:29)
[2023-02-17] MEDS ORDERED: NICOTINE 10 MG CARTRIDGE (INHALER) IH PRN (08:29)
[2023-02-17] MEDS ORDERED: IBUPROFEN 600 MG TABLET (FP) PO PRN (08:29)
[2023-02-17] MEDS ORDERED: NALOXONE HCL 0.4 MG/ML VIAL IM PRN (08:29)
[2023-02-17] MEDS ORDERED: MAGNESIUM HYDROX 2400MG/30ML ORAL SUSPENSION 30 ML CUP PO PRN (08:29)
[2023-02-17] MEDS ORDERED: guaiFENesin 600 MG TABLET.ER (FP) PO PRN (08:29)
[2023-02-17] MEDS ORDERED: IBUPROFEN 400 MG TABLET (FP) PO PRN (08:29)
[2023-02-17] MEDS ORDERED: LOPERAMIDE HCL 2 MG CAPSULE PO PRN (08:29)
[2023-02-17] MEDS ORDERED: POLYETHYLENE GLYCOL (HEALTHYLAX) 3350 17 GM PACKET PO PRN (08:29)
[2023-02-17] MEDS ORDERED: NICOTINE POLACRILEX 2 MG GUM BUC PRN (08:29)
[2023-02-17] MEDS ORDERED: BENZOCAINE/MENTHOL (CHLORASEPTIC ) LOZENGE MM PRN (08:29)
[2023-02-17] MEDS ORDERED: ONDANSETRON *ODT* 4 MG TABLET SL PRN (08:29)
[2023-02-17] MEDS ORDERED: chlordiazePOXIDE HCL 25 MG CAPSULE PO ONE (09:00)
[2023-02-17] MEDS ORDERED: chlordiazePOXIDE HCL 25 MG CAPSULE ONE (09:04)
[2023-02-17] MEDS ORDERED: NICOTINE 21 MG/24 HOURS TOPICAL PATCH ONE (09:05)
[2023-02-17] MEDS ORDERED: PRENATAL VITAMINS W/ FOLIC ACID TABLET (FP) PO ONE (09:05)
[2023-02-17] MEDS: PRENATAL VITAMINS W/ FOLIC ACID TABLET (FP) PO SCH (09:11)
[2023-02-17] MEDS: NICOTINE 21 MG/24 HOURS TOPICAL PATCH TD SCH (09:11)
[2023-02-17] MEDS: chlordiazePOXIDE HCL 25 MG CAPSULE PO SCH ×3 (10:16→22:13)
[2023-02-17 16:07] LABS: HEMATOCRIT 43.4 % (35.4-49); MCH 31.7 pg (25.7-33.7); MCHC 34.6 g/dl (32.0-35.9); MEAN CELL VOLUME 91.6 fl (80-96); MEAN PLT VOLUME 9.3 fl (7.5-11.1); PLATELET COUNT 246 10^3/uL (134-434); RBC 4.73 M/mm3 (4.00-5.60); RDW 13.8 % (11.9-15.9); WHITE BLOOD COUNT 6.8 K/mm3 (4.0-10.0)
[2023-02-17 16:10] LABS: POTASSIUM 3.8 mmol/L (3.5-5.1)
[2023-02-17 16:14] LABS: ALBUMIN 3.3 g/dl (3.4-5.0); BLOOD UREA NITROGEN 10.5 mg/dL (7-18)
[2023-02-17 16:17] LABS: CREATININE 0.7 mg/dL (0.55-1.3)
[2023-02-17 16:18] LABS: BILIRUBIN,TOTAL 0.4 mg/dL (0.2-1); TOT PROT 5.9 g/dl (6.4-8.2)
[2023-02-17] MEDS: MELATONIN 5 MG TABLETS PO SCH (22:13)
[2023-02-17] MEDS: THIAMINE HCL 100 MG TABLET (FP) PO SCH (22:13)
[2023-02-17] MEDS: METHOCARBAMOL 500 MG TABLET PO PRN (22:14)
[2023-02-18] MEDS: chlordiazePOXIDE HCL 25 MG CAPSULE PO SCH ×4 (05:38→22:08)
[2023-02-18] MEDS: LACTULOSE 20 GM/30 ML UDC (FOR ORAL USE ONLY) PO SCH ×4 (10:27→22:07)
[2023-02-18] MEDS: PRENATAL VITAMINS W/ FOLIC ACID TABLET (FP) PO SCH (10:27)
[2023-02-18] MEDS: NICOTINE 21 MG/24 HOURS TOPICAL PATCH TD SCH (10:27)
[2023-02-18] MEDS: METHOCARBAMOL 500 MG TABLET PO PRN (20:28)
[2023-02-18] MEDS: THIAMINE HCL 100 MG TABLET (FP) PO SCH (22:07)
[2023-02-18] MEDS: MELATONIN 5 MG TABLETS PO SCH (22:07)
[2023-02-19] MEDS: chlordiazePOXIDE HCL 25 MG CAPSULE PO SCH ×3 (05:53→18:00)
[2023-02-19] MEDS: METHOCARBAMOL 500 MG TABLET PO PRN ×2 (05:54→18:01)
[2023-02-19] MEDS: PRENATAL VITAMINS W/ FOLIC ACID TABLET (FP) PO SCH (10:10)
[2023-02-19] MEDS: LACTULOSE 20 GM/30 ML UDC (FOR ORAL USE ONLY) PO SCH ×3 (10:10→18:12)
[2023-02-19] MEDS: NICOTINE 21 MG/24 HOURS TOPICAL PATCH TD SCH (10:12)
[2023-02-19 19:04] VITALS: BP 112/61; PULSE 71; RESP 18; TEMP 98.9
[2023-02-20] MEDS ORDERED: chlordiazePOXIDE HCL 10 MG CAPSULE PO SCH (05:00)
[2023-02-21] MEDS ORDERED: chlordiazePOXIDE HCL 10 MG CAPSULE PO SCH (05:00)
[2023-02-22] MEDS ORDERED: chlordiazePOXIDE HCL 10 MG CAPSULE PO ONE (05:00)
== END 2023-02-19 20:17 | disposition left against medical advice (07) | DRG 770 ==
LOC: YASAS 06:30 → Y3N 08:38
PROVIDERS: ADMIT Allergy & Immunology; ATTEND Psychiatry & Neurology Pain Medicine
PROC: HZ2ZZZZ Detoxification Services for Substance Abuse Treatment (ICD-10-PCS; principal; 2023-02-17)
DX: F10.230 Alcohol dependence with withdrawal, uncomplicated (principal); F14.20 Cocaine dependence, uncomplicated; F12.20 Cannabis dependence, uncomplicated; F17.210 Nicotine dependence, cigarettes, uncomplicated; F19.24 Other psychoactive substance dependence with psychoactive substance-induced mood disorder; F41.9 Anxiety disorder, unspecified; G47.00 Insomnia, unspecified; Z59.00 Homelessness unspecified
CPT/HCPCS: 36415; 80053; 82140; 82962; 83036; 85027; 86780; 87811; C9803-CS; U0003; U0005

== ENCOUNTER 2023-04-14 06:47 | Inpatient (IN) | payer OTHER ==
[2023-04-14 07:03] VITALS: BMI 24.7
[2023-04-14] MEDS ORDERED: BISMUTH SUBSALICYLATE 262 MG/15 ML BTL PO PRN (09:24)
[2023-04-14] MEDS ORDERED: MAG HYDROX/AL HYDROX/SIMETH 30 ML UNIT-DOSE CUP PO PRN (09:24)
[2023-04-14] MEDS ORDERED: DICYCLOMINE HCL 10 MG CAPSULE PO PRN (09:24)
[2023-04-14] MEDS ORDERED: NALOXONE HCL 0.4 MG/ML VIAL IM PRN (09:24)
[2023-04-14] MEDS ORDERED: ACETAMINOPHEN 325 MG TABLET (FP) PO PRN (09:24)
[2023-04-14] MEDS ORDERED: IBUPROFEN 600 MG TABLET (FP) PO PRN (09:24)
[2023-04-14] MEDS ORDERED: MAGNESIUM HYDROX 2400MG/30ML ORAL SUSPENSION 30 ML CUP PO PRN (09:24)
[2023-04-14] MEDS ORDERED: POLYETHYLENE GLYCOL (HEALTHYLAX) 3350 17 GM PACKET PO PRN (09:24)
[2023-04-14] MEDS ORDERED: BENZONATATE 200 MG CAPSULE PO PRN (09:24)
[2023-04-14] MEDS ORDERED: LOPERAMIDE HCL 2 MG CAPSULE PO PRN (09:24)
[2023-04-14] MEDS ORDERED: ONDANSETRON *ODT* 4 MG TABLET SL PRN (09:24)
[2023-04-14] MEDS ORDERED: NALOXONE HCL (KLOXXADO) 8 MG SPRAY NS PRN (09:24)
[2023-04-14] MEDS ORDERED: NICOTINE POLACRILEX 2 MG GUM BUC PRN (09:24)
[2023-04-14] MEDS ORDERED: IBUPROFEN 400 MG TABLET (FP) PO PRN (09:24)
[2023-04-14] MEDS ORDERED: guaiFENesin 600 MG TABLET.ER (FP) PO PRN (09:24)
[2023-04-14] MEDS ORDERED: BENZOCAINE/MENTHOL (CHLORASEPTIC ) LOZENGE MM PRN (09:24)
[2023-04-14] MEDS ORDERED: chlordiazePOXIDE HCL 25 MG CAPSULE PO PRN (09:30)
[2023-04-14] MEDS: NICOTINE 21 MG/24 HOURS TOPICAL PATCH TD SCH (09:59)
[2023-04-14] MEDS ORDERED: PRENATAL VITAMINS W/ FOLIC ACID TABLET (FP) PO ONE (10:04)
[2023-04-14] MEDS: PRENATAL VITAMINS W/ FOLIC ACID TABLET (FP) PO SCH (10:08)
[2023-04-14] MEDS: chlordiazePOXIDE HCL 25 MG CAPSULE PO SCH ×3 (10:24→22:02)
[2023-04-14] MEDS: THIAMINE HCL 100 MG TABLET (FP) PO SCH (22:02)
[2023-04-14] MEDS: MELATONIN 5 MG TABLETS PO SCH (22:03)
[2023-04-15] MEDS: chlordiazePOXIDE HCL 25 MG CAPSULE PO SCH ×4 (05:26→22:25)
[2023-04-15] MEDS: NICOTINE 21 MG/24 HOURS TOPICAL PATCH TD SCH (10:03)
[2023-04-15] MEDS: PRENATAL VITAMINS W/ FOLIC ACID TABLET (FP) PO SCH (10:05)
[2023-04-15] MEDS: amLODIPine BESYLATE 5 MG TABLET (FP) PO SCH (10:05)
[2023-04-15 11:37] LABS: HEMATOCRIT 45.8 % (35.4-49); MCHC 34.9 g/dl (32.0-35.9); MEAN CELL VOLUME 91.6 fl (80-96); MEAN PLT VOLUME 8.7 fl (7.5-11.1); PLATELET COUNT 230 10^3/uL (134-434); RDW 13.6 % (11.9-15.9); WHITE BLOOD COUNT 5.7 K/mm3 (4.0-10.0)
[2023-04-15 12:23] LABS: ALBUMIN 3.5 g/dl (3.4-5.0)
[2023-04-15 12:24] LABS: BLOOD UREA NITROGEN 9.4 mg/dL (7-18)
[2023-04-15 12:26] LABS: CALCIUM 9.5 mg/dL (8.5-10.1); CREATININE 0.7 mg/dL (0.55-1.3)
[2023-04-15 12:27] LABS: TOT PROT 6.4 g/dl (6.4-8.2)
[2023-04-15 12:28] LABS: BILIRUBIN,TOTAL 0.5 mg/dL (0.2-1)
[2023-04-15] MEDS: cloNIDine HCL 0.1 MG TABLET PO PRN (14:40)
[2023-04-15] MEDS: THIAMINE HCL 100 MG TABLET (FP) PO SCH (22:25)
[2023-04-15] MEDS: MELATONIN 5 MG TABLETS PO SCH (22:26)
[2023-04-16] MEDS: chlordiazePOXIDE HCL 25 MG CAPSULE PO SCH ×4 (04:49→22:05)
[2023-04-16] MEDS: cloNIDine HCL 0.1 MG TABLET PO PRN (10:26)
[2023-04-16] MEDS: PRENATAL VITAMINS W/ FOLIC ACID TABLET (FP) PO SCH (10:26)
[2023-04-16] MEDS: NICOTINE 21 MG/24 HOURS TOPICAL PATCH TD SCH (10:26)
[2023-04-16] MEDS: METHOCARBAMOL 500 MG TABLET PO PRN (10:26)
[2023-04-16] MEDS: amLODIPine BESYLATE 5 MG TABLET (FP) PO SCH (10:26)
[2023-04-16] MEDS: THIAMINE HCL 100 MG TABLET (FP) PO SCH (22:05)
[2023-04-16] MEDS: MELATONIN 5 MG TABLETS PO SCH (22:05)
[2023-04-17] MEDS ORDERED: chlordiazePOXIDE HCL 10 MG CAPSULE PO PRN
[2023-04-17] MEDS: chlordiazePOXIDE HCL 10 MG CAPSULE PO SCH ×2 (04:45→10:58)
[2023-04-17] MEDS: PRENATAL VITAMINS W/ FOLIC ACID TABLET (FP) PO SCH (10:50)
[2023-04-17] MEDS: amLODIPine BESYLATE 5 MG TABLET (FP) PO SCH (10:50)
[2023-04-17] MEDS: NICOTINE 21 MG/24 HOURS TOPICAL PATCH TD SCH (10:50)
[2023-04-17] MEDS: METHOCARBAMOL 500 MG TABLET PO PRN (11:04)
[2023-04-17 13:54] VITALS: BP 116/78; PULSE 90; RESP 18; TEMP 97.6
[2023-04-18] MEDS ORDERED: chlordiazePOXIDE HCL 10 MG CAPSULE PO SCH (05:00)
[2023-04-19] MEDS ORDERED: chlordiazePOXIDE HCL 10 MG CAPSULE PO ONE (05:00)
== END 2023-04-17 15:05 | disposition left against medical advice (07) | DRG 770 ==
LOC: YASAS 06:47 → Y6N 09:42
PROVIDERS: ADMIT Allergy & Immunology; ATTEND Surgery
PROC: HZ2ZZZZ Detoxification Services for Substance Abuse Treatment (ICD-10-PCS; principal; 2023-04-14)
DX: F10.230 Alcohol dependence with withdrawal, uncomplicated (principal); F14.20 Cocaine dependence, uncomplicated; F12.20 Cannabis dependence, uncomplicated; F17.210 Nicotine dependence, cigarettes, uncomplicated; G47.00 Insomnia, unspecified; I10 Essential (primary) hypertension
CPT/HCPCS: 36415; 80053; 82962; 85027; 86780; 87635; 87811; 93005; 93010

== ENCOUNTER 2023-04-30 03:44 | Inpatient (IN) | payer OTHER ==
[2023-04-30 04:12] VITALS: BMI 25.8
[2023-04-30] MEDS ORDERED: LOPERAMIDE HCL 2 MG CAPSULE PO PRN (04:58)
[2023-04-30] MEDS ORDERED: NALOXONE HCL 0.4 MG/ML VIAL IM PRN (04:58)
[2023-04-30] MEDS ORDERED: MAGNESIUM HYDROX 2400MG/30ML ORAL SUSPENSION 30 ML CUP PO PRN (04:58)
[2023-04-30] MEDS ORDERED: guaiFENesin 600 MG TABLET.ER (FP) PO PRN (04:58)
[2023-04-30] MEDS ORDERED: ACETAMINOPHEN 325 MG TABLET (FP) PO PRN (04:58)
[2023-04-30] MEDS ORDERED: NALOXONE HCL (KLOXXADO) 8 MG SPRAY NS PRN (04:58)
[2023-04-30] MEDS ORDERED: IBUPROFEN 400 MG TABLET (FP) PO PRN (04:58)
[2023-04-30] MEDS ORDERED: POLYETHYLENE GLYCOL (HEALTHYLAX) 3350 17 GM PACKET PO PRN (04:58)
[2023-04-30] MEDS ORDERED: BISMUTH SUBSALICYLATE 524 MG/30 ML PO PRN (04:58)
[2023-04-30] MEDS ORDERED: ONDANSETRON *ODT* 4 MG TABLET SL PRN (04:58)
[2023-04-30] MEDS ORDERED: IBUPROFEN 600 MG TABLET (FP) PO PRN (04:58)
[2023-04-30] MEDS ORDERED: MAG HYDROX/AL HYDROX/SIMETH 30 ML UNIT-DOSE CUP PO PRN (04:58)
[2023-04-30] MEDS ORDERED: BENZONATATE 200 MG CAPSULE PO PRN (04:58)
[2023-04-30] MEDS ORDERED: DICYCLOMINE HCL 10 MG CAPSULE PO PRN (04:58)
[2023-04-30] MEDS ORDERED: NICOTINE POLACRILEX 2 MG GUM BUC PRN (04:58)
[2023-04-30] MEDS ORDERED: BENZOCAINE/MENTHOL (CHLORASEPTIC ) LOZENGE MM PRN (04:58)
[2023-04-30] MEDS ORDERED: NICOTINE 21 MG/24 HOURS TOPICAL PATCH ONE (09:16)
[2023-04-30] MEDS ORDERED: PRENATAL VITAMINS W/ FOLIC ACID TABLET (FP) PO ONE (09:16)
[2023-04-30] MEDS: PRENATAL VITAMINS W/ FOLIC ACID TABLET (FP) PO SCH (09:22)
[2023-04-30] MEDS: NICOTINE 21 MG/24 HOURS TOPICAL PATCH TD SCH (09:22)
[2023-04-30] MEDS: chlordiazePOXIDE HCL 25 MG CAPSULE PO SCH ×2 (17:31→22:15)
[2023-04-30] MEDS: MELATONIN 5 MG TABLETS PO SCH (22:15)
[2023-04-30] MEDS: THIAMINE HCL 100 MG TABLET (FP) PO SCH (22:15)
[2023-05-01] MEDS: METHOCARBAMOL 500 MG TABLET PO PRN ×2 (03:12→19:12)
[2023-05-01] MEDS: chlordiazePOXIDE HCL 25 MG CAPSULE PO SCH ×4 (05:39→22:10)
[2023-05-01 09:33] LABS: HEMATOCRIT 43.9 % (35.4-49); MCH 32.1 pg (25.7-33.7); MCHC 34.2 g/dl (32.0-35.9); MEAN CELL VOLUME 93.7 fl (80-96); MEAN PLT VOLUME 9.2 fl (7.5-11.1); PLATELET COUNT 236 10^3/uL (134-434); RBC 4.69 M/mm3 (4.00-5.60); RDW 12.9 % (11.9-15.9); WHITE BLOOD COUNT 7.6 K/mm3 (4.0-10.0)
[2023-05-01 09:35] LABS: POTASSIUM 4.1 mmol/L (3.5-5.1)
[2023-05-01 09:37] LABS: CALCIUM 8.6 mg/dL (8.5-10.1)
[2023-05-01 09:38] LABS: ALBUMIN 3.4 g/dl (3.4-5.0); BLOOD UREA NITROGEN 14.9 mg/dL (7-18)
[2023-05-01 09:41] LABS: CREATININE 0.7 mg/dL (0.55-1.3)
[2023-05-01 09:42] LABS: BILIRUBIN,TOTAL 0.1 mg/dL (0.2-1); TOT PROT 5.9 g/dl (6.4-8.2)
[2023-05-01] MEDS: PRENATAL VITAMINS W/ FOLIC ACID TABLET (FP) PO SCH (10:09)
[2023-05-01] MEDS: NICOTINE 21 MG/24 HOURS TOPICAL PATCH TD SCH (10:09)
[2023-05-01] MEDS: MELATONIN 5 MG TABLETS PO SCH (22:09)
[2023-05-01] MEDS: THIAMINE HCL 100 MG TABLET (FP) PO SCH (22:09)
[2023-05-02] MEDS: chlordiazePOXIDE HCL 25 MG CAPSULE PO PRN ×2 (00:28→03:48)
[2023-05-02] MEDS: chlordiazePOXIDE HCL 25 MG CAPSULE PO SCH ×2 (06:00→10:08)
[2023-05-02 09:16] VITALS: BP 106/61; PULSE 66; RESP 16; TEMP 97.3
[2023-05-02] MEDS: NICOTINE 21 MG/24 HOURS TOPICAL PATCH TD SCH (09:45)
[2023-05-02] MEDS: PRENATAL VITAMINS W/ FOLIC ACID TABLET (FP) PO SCH (09:45)
[2023-05-02] MEDS: METHOCARBAMOL 500 MG TABLET PO PRN (09:46)
[2023-05-03] MEDS ORDERED: chlordiazePOXIDE HCL 10 MG CAPSULE PO PRN
[2023-05-03] MEDS ORDERED: chlordiazePOXIDE HCL 10 MG CAPSULE PO SCH (05:00)
[2023-05-04] MEDS ORDERED: chlordiazePOXIDE HCL 10 MG CAPSULE PO SCH (05:00)
[2023-05-05] MEDS ORDERED: chlordiazePOXIDE HCL 10 MG CAPSULE PO ONE (05:00)
== END 2023-05-02 11:35 | disposition left against medical advice (07) | DRG 770 ==
LOC: YASAS 03:44 → Y3N 12:09
PROVIDERS: ADMIT Allergy & Immunology; ATTEND Allergy & Immunology
PROC: HZ2ZZZZ Detoxification Services for Substance Abuse Treatment (ICD-10-PCS; principal; 2023-04-30)
DX: F10.230 Alcohol dependence with withdrawal, uncomplicated (principal); F14.20 Cocaine dependence, uncomplicated; F17.210 Nicotine dependence, cigarettes, uncomplicated; G47.00 Insomnia, unspecified; R73.03 Prediabetes
CPT/HCPCS: 36415; 80053; 85027; 86780; 87635; 87811; 93005; 93010

== ENCOUNTER 2023-06-23 06:21 | Inpatient (IN) | payer OTHER ==
[2023-06-23 06:46] VITALS: BMI 27.7
[2023-06-23] MEDS ORDERED: chlordiazePOXIDE HCL 25 MG CAPSULE PO PRN (10:12)
[2023-06-23] MEDS ORDERED: ONDANSETRON *ODT* 4 MG TABLET SL PRN (10:13)
[2023-06-23] MEDS ORDERED: BENZOCAINE/MENTHOL (CHLORASEPTIC ) LOZENGE MM PRN (10:13)
[2023-06-23] MEDS ORDERED: NICOTINE POLACRILEX 2 MG GUM BUC PRN (10:13)
[2023-06-23] MEDS ORDERED: guaiFENesin 600 MG TABLET.ER (FP) PO PRN (10:13)
[2023-06-23] MEDS ORDERED: IBUPROFEN 600 MG TABLET (FP) PO PRN (10:13)
[2023-06-23] MEDS ORDERED: DICYCLOMINE HCL 10 MG CAPSULE PO PRN (10:13)
[2023-06-23] MEDS ORDERED: POLYETHYLENE GLYCOL (HEALTHYLAX) 3350 17 GM PACKET PO PRN (10:13)
[2023-06-23] MEDS ORDERED: LOPERAMIDE HCL 2 MG CAPSULE PO PRN (10:13)
[2023-06-23] MEDS ORDERED: P-EPHED 60MG/TRIPROLIDI 2.5MG TABLET PO PRN (10:13)
[2023-06-23] MEDS ORDERED: BISMUTH SUBSALICYLATE 524 MG/30 ML PO PRN (10:13)
[2023-06-23] MEDS ORDERED: hydrOXYzine PAMOATE 25 MG CAPSULE (FP) PO PRN (10:13)
[2023-06-23] MEDS ORDERED: IBUPROFEN 400 MG TABLET (FP) PO PRN (10:13)
[2023-06-23] MEDS ORDERED: ACETAMINOPHEN 325 MG TABLET (FP) PO PRN (10:13)
[2023-06-23] MEDS ORDERED: MAG HYDROX/AL HYDROX/SIMETH 30 ML UNIT-DOSE CUP PO PRN (10:13)
[2023-06-23] MEDS ORDERED: MAGNESIUM HYDROX 2400MG/30ML ORAL SUSPENSION 30 ML CUP PO PRN (10:13)
[2023-06-23] MEDS ORDERED: BENZONATATE 200 MG CAPSULE PO PRN (10:13)
[2023-06-23] MEDS ORDERED: METHOCARBAMOL 500 MG TABLET PO PRN (10:13)
[2023-06-23] MEDS: chlordiazePOXIDE HCL 25 MG CAPSULE PO SCH ×3 (10:38→22:23)
[2023-06-23] MEDS ORDERED: chlordiazePOXIDE HCL 25 MG CAPSULE ONE (10:59)
[2023-06-23] MEDS: THIAMINE HCL 100 MG TABLET (FP) PO SCH (22:23)
[2023-06-23] MEDS: MELATONIN 5 MG TABLETS PO SCH (22:23)
[2023-06-24] MEDS: chlordiazePOXIDE HCL 25 MG CAPSULE PO SCH ×4 (05:38→22:10)
[2023-06-24] MEDS: PRENATAL VITAMINS W/ FOLIC ACID TABLET (FP) PO SCH (10:24)
[2023-06-24] MEDS: THIAMINE HCL 100 MG TABLET (FP) PO SCH (22:10)
[2023-06-24] MEDS: MELATONIN 5 MG TABLETS PO SCH (22:10)
[2023-06-25] MEDS: chlordiazePOXIDE HCL 25 MG CAPSULE PO SCH ×2 (05:18→10:20)
[2023-06-25 08:56] VITALS: RESP 16
[2023-06-25] MEDS: PRENATAL VITAMINS W/ FOLIC ACID TABLET (FP) PO SCH (10:20)
[2023-06-25 13:14] VITALS: BP 120/78; PULSE 86; TEMP 97.7
[2023-06-26] MEDS ORDERED: chlordiazePOXIDE HCL 10 MG CAPSULE PO PRN
[2023-06-26] MEDS ORDERED: chlordiazePOXIDE HCL 10 MG CAPSULE PO SCH (05:00)
[2023-06-27] MEDS ORDERED: chlordiazePOXIDE HCL 10 MG CAPSULE PO SCH (05:00)
[2023-06-28] MEDS ORDERED: chlordiazePOXIDE HCL 10 MG CAPSULE PO ONE (05:00)
== END 2023-06-25 13:25 | disposition left against medical advice (07) | DRG 770 ==
LOC: YASAS 06:21 → Y3N 10:27
PROVIDERS: ADMIT Allergy & Immunology; ATTEND Surgery
PROC: HZ2ZZZZ Detoxification Services for Substance Abuse Treatment (ICD-10-PCS; principal; 2023-06-23)
DX: F10.230 Alcohol dependence with withdrawal, uncomplicated (principal); F14.20 Cocaine dependence, uncomplicated; F17.210 Nicotine dependence, cigarettes, uncomplicated; Z56.0 Unemployment, unspecified; Z59.00 Homelessness unspecified
CPT/HCPCS: 87635

== ENCOUNTER 2023-07-01 06:41 | Inpatient (IN) | payer OTHER ==
[2023-07-01 08:55] VITALS: BMI 26.6
[2023-07-01] MEDS ORDERED: BENZOCAINE/MENTHOL (CHLORASEPTIC ) LOZENGE MM PRN (09:18)
[2023-07-01] MEDS ORDERED: BISMUTH SUBSALICYLATE 524 MG/30 ML PO PRN (09:18)
[2023-07-01] MEDS ORDERED: BENZONATATE 200 MG CAPSULE PO PRN (09:18)
[2023-07-01] MEDS ORDERED: METHOCARBAMOL 500 MG TABLET PO PRN (09:18)
[2023-07-01] MEDS ORDERED: ONDANSETRON *ODT* 4 MG TABLET SL PRN (09:18)
[2023-07-01] MEDS ORDERED: MAGNESIUM HYDROX 2400MG/30ML ORAL SUSPENSION 30 ML CUP PO PRN (09:18)
[2023-07-01] MEDS ORDERED: IBUPROFEN 600 MG TABLET (FP) PO PRN (09:18)
[2023-07-01] MEDS ORDERED: hydrOXYzine PAMOATE 25 MG CAPSULE (FP) PO PRN (09:18)
[2023-07-01] MEDS ORDERED: guaiFENesin 600 MG TABLET.ER (FP) PO PRN (09:18)
[2023-07-01] MEDS ORDERED: IBUPROFEN 400 MG TABLET (FP) PO PRN (09:18)
[2023-07-01] MEDS ORDERED: MAG HYDROX/AL HYDROX/SIMETH 30 ML UNIT-DOSE CUP PO PRN (09:18)
[2023-07-01] MEDS ORDERED: P-EPHED 60MG/TRIPROLIDI 2.5MG TABLET PO PRN (09:18)
[2023-07-01] MEDS ORDERED: DICYCLOMINE HCL 10 MG CAPSULE PO PRN (09:18)
[2023-07-01] MEDS ORDERED: NICOTINE POLACRILEX 2 MG GUM BUC PRN (09:18)
[2023-07-01] MEDS ORDERED: ACETAMINOPHEN 325 MG TABLET (FP) PO PRN (09:18)
[2023-07-01] MEDS ORDERED: POLYETHYLENE GLYCOL (HEALTHYLAX) 3350 17 GM PACKET PO PRN (09:18)
[2023-07-01] MEDS ORDERED: LOPERAMIDE HCL 2 MG CAPSULE PO PRN (09:18)
[2023-07-01] MEDS ORDERED: PRENATAL VITAMINS W/ FOLIC ACID TABLET (FP) PO ONE (10:32)
[2023-07-01] MEDS: PRENATAL VITAMINS W/ FOLIC ACID TABLET (FP) PO SCH (10:40)
[2023-07-01] MEDS ORDERED: diazePAM 5 MG TABLET PO PRN (14:56)
[2023-07-01] MEDS: diazePAM 5 MG TABLET PO SCH ×2 (17:16→22:26)
[2023-07-01] MEDS ORDERED: THIAMINE HCL 100 MG TABLET (FP) PO SCH (22:00)
[2023-07-01] MEDS ORDERED: MELATONIN 5 MG TABLETS PO SCH (22:00)
[2023-07-02] MEDS ORDERED: diazePAM 5 MG TABLET PO SCH (06:00)
[2023-07-02 09:19] VITALS: RESP 16
[2023-07-02] MEDS: PRENATAL VITAMINS W/ FOLIC ACID TABLET (FP) PO SCH (10:49)
[2023-07-02 12:22] VITALS: BP 142/90; PULSE 68; TEMP 98.1
[2023-07-03] MEDS ORDERED: diazePAM 5 MG TABLET PO SCH (06:00)
[2023-07-04] MEDS ORDERED: diazePAM 5 MG TABLET PO ONE (06:00)
== END 2023-07-02 13:50 | disposition left against medical advice (07) | DRG 770 ==
LOC: YASAS 06:41 → Y6N 09:27 → UNDOADMIN 09:27 → Y6N 19:07 → UNDODISIN 07-02 13:50
PROVIDERS: ADMIT Allergy & Immunology; ATTEND Surgery
PROC: HZ2ZZZZ Detoxification Services for Substance Abuse Treatment (ICD-10-PCS; principal; 2023-07-01)
DX: F10.230 Alcohol dependence with withdrawal, uncomplicated (principal); F14.20 Cocaine dependence, uncomplicated; F12.20 Cannabis dependence, uncomplicated; F17.210 Nicotine dependence, cigarettes, uncomplicated
CPT/HCPCS: 87635; 87811

== ENCOUNTER 2023-07-28 00:58 | Inpatient (IN) | payer OTHER ==
[2023-07-28 02:24] VITALS: BMI 27.6
[2023-07-28] MEDS ORDERED: BENZONATATE 200 MG CAPSULE PO PRN (02:40)
[2023-07-28] MEDS ORDERED: BISMUTH SUBSALICYLATE 524 MG/30 ML PO PRN (02:40)
[2023-07-28] MEDS ORDERED: DICYCLOMINE HCL 10 MG CAPSULE PO PRN (02:40)
[2023-07-28] MEDS ORDERED: guaiFENesin 600 MG TABLET.ER (FP) PO PRN (02:40)
[2023-07-28] MEDS ORDERED: chlordiazePOXIDE HCL 25 MG CAPSULE PO PRN (02:40)
[2023-07-28] MEDS ORDERED: NICOTINE POLACRILEX 4 MG GUM BUC PRN (02:40)
[2023-07-28] MEDS ORDERED: IBUPROFEN 400 MG TABLET (FP) PO PRN (02:40)
[2023-07-28] MEDS ORDERED: ONDANSETRON *ODT* 4 MG TABLET SL PRN (02:40)
[2023-07-28] MEDS ORDERED: POLYETHYLENE GLYCOL (HEALTHYLAX) 3350 17 GM PACKET PO PRN (02:40)
[2023-07-28] MEDS ORDERED: NALOXONE HCL (KLOXXADO) 8 MG SPRAY NS PRN (02:40)
[2023-07-28] MEDS ORDERED: NALOXONE HCL 0.4 MG/ML VIAL IM PRN (02:40)
[2023-07-28] MEDS ORDERED: BENZOCAINE/MENTHOL (CHLORASEPTIC ) LOZENGE MM PRN (02:40)
[2023-07-28] MEDS ORDERED: MAG HYDROX/AL HYDROX/SIMETH 30 ML UNIT-DOSE CUP PO PRN (02:40)
[2023-07-28] MEDS ORDERED: LOPERAMIDE HCL 2 MG CAPSULE PO PRN (02:40)
[2023-07-28] MEDS ORDERED: ACETAMINOPHEN 325 MG TABLET (FP) PO PRN (02:40)
[2023-07-28] MEDS ORDERED: MAGNESIUM HYDROX 2400MG/30ML ORAL SUSPENSION 30 ML CUP PO PRN (02:40)
[2023-07-28] MEDS ORDERED: IBUPROFEN 600 MG TABLET (FP) PO PRN (02:40)
[2023-07-28] MEDS: chlordiazePOXIDE HCL 25 MG CAPSULE PO SCH ×4 (05:46→22:28)
[2023-07-28] MEDS: NICOTINE 21 MG/24 HOURS TOPICAL PATCH TD SCH (10:39)
[2023-07-28] MEDS: PRENATAL VITAMINS W/ FOLIC ACID TABLET (FP) PO SCH (10:39)
[2023-07-28 11:37] LABS: HEMATOCRIT 41.6 % (35.4-49); HEMOGLOBIN 14.9 GM/dL (11.7-16.9); MCH 32.6 pg (25.7-33.7); MCHC 35.8 g/dl (32.0-35.9); MEAN PLT VOLUME 8.4 fl (7.5-11.1); PLATELET COUNT 295 10^3/uL (134-434); RBC 4.57 M/mm3 (4.00-5.60); RDW 13.5 % (11.9-15.9); WHITE BLOOD COUNT 7.3 K/mm3 (4.0-10.0)
[2023-07-28 12:24] LABS: CHLORIDE 109 mmol/L (98-107); POTASSIUM 3.9 mmol/L (3.5-5.1); SODIUM 139 mmol/L (136-145)
[2023-07-28 12:26] LABS: CALCIUM 8.2 mg/dL (8.5-10.1); GLUCOSE,RANDOM 116 mg/dL (74-106)
[2023-07-28 12:27] LABS: ALBUMIN 3.1 g/dl (3.4-5.0); ANION GAP 5 mmol/L (4-13); BLOOD UREA NITROGEN 9.8 mg/dL (7-18); CO2 26 mmol/L (21-32)
[2023-07-28 12:30] LABS: CREATININE 0.7 mg/dL (0.55-1.3); SGOT/AST 18 U/L (15-37); SGPT/ALT 19 U/L (13-61)
[2023-07-28 12:31] LABS: BILIRUBIN,TOTAL 0.2 mg/dL (0.2-1); TOT PROT 6.1 g/dl (6.4-8.2)
[2023-07-28 12:32] LABS: ALK PHOS 151 U/L (45-117)
[2023-07-28] MEDS: THIAMINE HCL 100 MG TABLET (FP) PO SCH (22:28)
[2023-07-28] MEDS: MELATONIN 5 MG TABLETS PO SCH (22:28)
[2023-07-29] MEDS: chlordiazePOXIDE HCL 25 MG CAPSULE PO SCH ×4 (05:20→22:31)
[2023-07-29] MEDS: PRENATAL VITAMINS W/ FOLIC ACID TABLET (FP) PO SCH (10:18)
[2023-07-29] MEDS: NICOTINE 21 MG/24 HOURS TOPICAL PATCH TD SCH (10:20)
[2023-07-29] MEDS: hydrOXYzine PAMOATE 25 MG CAPSULE (FP) PO PRN ×2 (10:21→22:32)
[2023-07-29] MEDS: MELATONIN 5 MG TABLETS PO SCH (22:31)
[2023-07-29] MEDS: THIAMINE HCL 100 MG TABLET (FP) PO SCH (22:31)
[2023-07-30] MEDS ORDERED: chlordiazePOXIDE HCL 10 MG CAPSULE PO PRN
[2023-07-30] MEDS: chlordiazePOXIDE HCL 10 MG CAPSULE PO SCH ×2 (05:36→10:54)
[2023-07-30] MEDS: hydrOXYzine PAMOATE 25 MG CAPSULE (FP) PO PRN (05:38)
[2023-07-30 09:12] VITALS: TEMP 97.8
[2023-07-30] MEDS: PRENATAL VITAMINS W/ FOLIC ACID TABLET (FP) PO SCH (10:54)
[2023-07-30] MEDS: NICOTINE 21 MG/24 HOURS TOPICAL PATCH TD SCH (10:55)
[2023-07-30] MEDS ORDERED: ALBUTEROL SO4 HFA INHALER IH PRN (13:54)
[2023-07-30 14:40] VITALS: BP 134/89; PULSE 86; RESP 16
[2023-07-31] MEDS ORDERED: chlordiazePOXIDE HCL 10 MG CAPSULE PO SCH (05:00)
[2023-08-01] MEDS ORDERED: chlordiazePOXIDE HCL 10 MG CAPSULE PO ONE (05:00)
== END 2023-07-30 02:58 | disposition left against medical advice (07) | DRG 770 ==
LOC: YASAS 00:58 → Y6N 02:56
PROVIDERS: ADMIT Allergy & Immunology; ATTEND Surgery
PROC: HZ2ZZZZ Detoxification Services for Substance Abuse Treatment (ICD-10-PCS; principal; 2023-07-28)
DX: F10.230 Alcohol dependence with withdrawal, uncomplicated (principal); F14.20 Cocaine dependence, uncomplicated; F12.20 Cannabis dependence, uncomplicated; F17.210 Nicotine dependence, cigarettes, uncomplicated; J45.20 Mild intermittent asthma, uncomplicated
CPT/HCPCS: 36415; 80053; 80307; 85027; 86780; 87635; 93005; 93010

== ENCOUNTER 2023-09-11 14:15 | Inpatient (IN) | payer OTHER ==
[2023-09-11 14:45] VITALS: BMI 26.6
[2023-09-11] MEDS ORDERED: ALBUTEROL SO4 HFA INHALER IH PRN (15:02)
[2023-09-11] MEDS ORDERED: BENZONATATE 200 MG CAPSULE PO PRN (15:28)
[2023-09-11] MEDS ORDERED: POLYETHYLENE GLYCOL (HEALTHYLAX) 3350 17 GM PACKET PO PRN (15:28)
[2023-09-11] MEDS ORDERED: ACETAMINOPHEN 325 MG TABLET (FP) PO PRN (15:28)
[2023-09-11] MEDS ORDERED: NICOTINE POLACRILEX 2 MG GUM BUC PRN (15:28)
[2023-09-11] MEDS ORDERED: P-EPHED 60MG/TRIPROLIDI 2.5MG TABLET PO PRN (15:28)
[2023-09-11] MEDS ORDERED: IBUPROFEN 600 MG TABLET (FP) PO PRN (15:28)
[2023-09-11] MEDS ORDERED: BISMUTH SUBSALICYLATE 524 MG/30 ML PO PRN (15:28)
[2023-09-11] MEDS ORDERED: IBUPROFEN 400 MG TABLET (FP) PO PRN (15:28)
[2023-09-11] MEDS ORDERED: ONDANSETRON *ODT* 4 MG TABLET SL PRN (15:28)
[2023-09-11] MEDS ORDERED: guaiFENesin 600 MG TABLET.ER (FP) PO PRN (15:28)
[2023-09-11] MEDS ORDERED: MAGNESIUM HYDROX 2400MG/30ML ORAL SUSPENSION 30 ML CUP PO PRN (15:28)
[2023-09-11] MEDS ORDERED: BENZOCAINE/MENTHOL (CHLORASEPTIC ) LOZENGE MM PRN (15:28)
[2023-09-11] MEDS ORDERED: DICYCLOMINE HCL 10 MG CAPSULE PO PRN (15:28)
[2023-09-11] MEDS ORDERED: MAG HYDROX/AL HYDROX/SIMETH 30 ML UNIT-DOSE CUP PO PRN (15:28)
[2023-09-11] MEDS ORDERED: LOPERAMIDE HCL 2 MG CAPSULE PO PRN (15:28)
[2023-09-11] MEDS ORDERED: chlordiazePOXIDE HCL 25 MG CAPSULE PO PRN (15:29)
[2023-09-11] MEDS: chlordiazePOXIDE HCL 25 MG CAPSULE PO SCH (22:16)
[2023-09-11] MEDS: MELATONIN 5 MG TABLETS PO SCH (22:16)
[2023-09-11] MEDS: THIAMINE HCL 100 MG TABLET (FP) PO SCH (22:16)
[2023-09-12] MEDS: chlordiazePOXIDE HCL 25 MG CAPSULE PO SCH ×4 (05:38→22:10)
[2023-09-12] MEDS: PRENATAL VITAMINS W/ FOLIC ACID TABLET (FP) PO SCH (10:18)
[2023-09-12 10:22] LABS: HEMATOCRIT 41.7 % (35.4-49); HEMOGLOBIN 13.9 GM/dL (11.7-16.9); MCH 31.1 pg (25.7-33.7); MCHC 33.3 g/dl (32.0-35.9); MEAN CELL VOLUME 93.3 fl (80-96); MEAN PLT VOLUME 7.8 fl (7.5-11.1); PLATELET COUNT 291 10^3/uL (134-434); RBC 4.47 M/mm3 (4.00-5.60); RDW 13.5 % (11.9-15.9); WHITE BLOOD COUNT 7.8 K/mm3 (4.0-10.0)
[2023-09-12 10:28] LABS: CHLORIDE 107 mmol/L (98-107); POTASSIUM 3.8 mmol/L (3.5-5.1); SODIUM 140 mmol/L (136-145)
[2023-09-12 10:34] LABS: ALBUMIN 2.8 g/dl (3.4-5.0); ANION GAP 3 mmol/L (4-13); CALCIUM 8.9 mg/dL (8.5-10.1); CO2 30 mmol/L (21-32); GLUCOSE,RANDOM 129 mg/dL (74-106)
[2023-09-12 10:36] LABS: SGPT/ALT 22 U/L (13-61)
[2023-09-12 10:37] LABS: BILIRUBIN,TOTAL 0.3 mg/dL (0.2-1); CREATININE 0.7 mg/dL (0.55-1.3); SGOT/AST 16 U/L (15-37); TOT PROT 6.2 g/dl (6.4-8.2)
[2023-09-12 10:38] LABS: ALK PHOS 130 U/L (45-117)
[2023-09-12] MEDS: THIAMINE HCL 100 MG TABLET (FP) PO SCH (22:10)
[2023-09-12] MEDS: MELATONIN 5 MG TABLETS PO SCH (22:10)
[2023-09-13] MEDS: chlordiazePOXIDE HCL 25 MG CAPSULE PO SCH ×4 (05:45→22:02)
[2023-09-13] MEDS: PRENATAL VITAMINS W/ FOLIC ACID TABLET (FP) PO SCH (10:05)
[2023-09-13] MEDS: METHOCARBAMOL 500 MG TABLET PO PRN (10:06)
[2023-09-13 13:04] VITALS: RESP 18
[2023-09-13] MEDS ORDERED: traZODone HCL 50 MG TABLET (FP) PO SCH (22:00)
[2023-09-13] MEDS: MELATONIN 5 MG TABLETS PO SCH (22:01)
[2023-09-13] MEDS: THIAMINE HCL 100 MG TABLET (FP) PO SCH (22:01)
[2023-09-14] MEDS ORDERED: chlordiazePOXIDE HCL 10 MG CAPSULE PO PRN
[2023-09-14] MEDS ORDERED: chlordiazePOXIDE HCL 10 MG CAPSULE PO SCH (05:00)
[2023-09-14] MEDS: METHOCARBAMOL 500 MG TABLET PO PRN (05:20)
[2023-09-14 05:46] VITALS: PULSE 86
[2023-09-14] MEDS: PRENATAL VITAMINS W/ FOLIC ACID TABLET (FP) PO SCH (09:07)
[2023-09-14 09:15] VITALS: BP 122/77; TEMP 98.4
[2023-09-15] MEDS ORDERED: chlordiazePOXIDE HCL 10 MG CAPSULE PO SCH (05:00)
[2023-09-16] MEDS ORDERED: chlordiazePOXIDE HCL 10 MG CAPSULE PO ONE (05:00)
== END 2023-09-14 10:04 | disposition home or self-care (01) | DRG 774 ==
LOC: YASAS 14:15 → Y3N 15:30
PROVIDERS: ADMIT Allergy & Immunology; ATTEND Surgery
PROC: HZ2ZZZZ Detoxification Services for Substance Abuse Treatment (ICD-10-PCS; principal; 2023-09-11)
DX: F10.230 Alcohol dependence with withdrawal, uncomplicated (principal); F14.20 Cocaine dependence, uncomplicated; F17.210 Nicotine dependence, cigarettes, uncomplicated; F19.24 Other psychoactive substance dependence with psychoactive substance-induced mood disorder; G47.00 Insomnia, unspecified; Z56.0 Unemployment, unspecified; Z59.00 Homelessness unspecified
CPT/HCPCS: 36415; 80053; 80307; 85027; 86780; 87635; Q0162

== ENCOUNTER 2023-10-12 03:43 | Inpatient (IN) | payer OTHER ==
[2023-10-12 03:56] VITALS: BMI 26.3
[2023-10-12] MEDS ORDERED: MAG HYDROX/AL HYDROX/SIMETH 30 ML UNIT-DOSE CUP PO PRN (04:35)
[2023-10-12] MEDS ORDERED: ACETAMINOPHEN 325 MG TABLET (FP) PO PRN (04:35)
[2023-10-12] MEDS ORDERED: ONDANSETRON *ODT* 4 MG TABLET SL PRN (04:35)
[2023-10-12] MEDS ORDERED: POLYETHYLENE GLYCOL (HEALTHYLAX) 3350 17 GM PACKET PO PRN (04:35)
[2023-10-12] MEDS ORDERED: MAGNESIUM HYDROX 2400MG/30ML ORAL SUSPENSION 30 ML CUP PO PRN (04:35)
[2023-10-12] MEDS ORDERED: DICYCLOMINE HCL 10 MG CAPSULE PO PRN (04:35)
[2023-10-12] MEDS ORDERED: IBUPROFEN 400 MG TABLET (FP) PO PRN (04:35)
[2023-10-12] MEDS ORDERED: BENZONATATE 200 MG CAPSULE PO PRN (04:35)
[2023-10-12] MEDS ORDERED: IBUPROFEN 600 MG TABLET (FP) PO PRN (04:35)
[2023-10-12] MEDS ORDERED: NALOXONE HCL (KLOXXADO) 8 MG SPRAY NS PRN (04:35)
[2023-10-12] MEDS ORDERED: NALOXONE HCL 0.4 MG/ML VIAL IM PRN (04:35)
[2023-10-12] MEDS ORDERED: NICOTINE POLACRILEX 2 MG GUM BUC PRN (04:35)
[2023-10-12] MEDS ORDERED: guaiFENesin 600 MG TABLET.ER (FP) PO PRN (04:35)
[2023-10-12] MEDS ORDERED: hydrOXYzine PAMOATE 25 MG CAPSULE (FP) PO PRN (04:35)
[2023-10-12] MEDS ORDERED: BISMUTH SUBSALICYLATE 524 MG/30 ML PO PRN (04:35)
[2023-10-12] MEDS ORDERED: LOPERAMIDE HCL 2 MG CAPSULE PO PRN (04:35)
[2023-10-12] MEDS ORDERED: BENZOCAINE/MENTHOL (CHLORASEPTIC ) LOZENGE MM PRN (04:35)
[2023-10-12] MEDS ORDERED: diazePAM 5 MG TABLET PO PRN (04:43)
[2023-10-12] MEDS ORDERED: diazePAM 5 MG TABLET ONE (05:37)
[2023-10-12] MEDS: diazePAM 5 MG TABLET PO SCH ×2 (05:39→10:17)
[2023-10-12] MEDS: PRENATAL VITAMINS W/ FOLIC ACID TABLET (FP) PO SCH (10:17)
[2023-10-12] MEDS: NICOTINE 21 MG/24 HOURS TOPICAL PATCH TD SCH (10:17)
[2023-10-12] MEDS ORDERED: chlordiazePOXIDE HCL 25 MG CAPSULE PO PRN (11:05)
[2023-10-12] MEDS: chlordiazePOXIDE HCL 25 MG CAPSULE PO SCH ×2 (17:28→22:21)
[2023-10-12] MEDS ORDERED: THIAMINE HCL 100 MG TABLET (FP) PO SCH (22:00)
[2023-10-12] MEDS ORDERED: MELATONIN 5 MG TABLETS PO SCH (22:00)
[2023-10-12] MEDS: METHOCARBAMOL 500 MG TABLET PO PRN (22:22)
[2023-10-13] MEDS: METHOCARBAMOL 500 MG TABLET PO PRN (05:50)
[2023-10-13] MEDS: chlordiazePOXIDE HCL 25 MG CAPSULE PO SCH ×3 (05:51→17:43)
[2023-10-13] MEDS ORDERED: diazePAM 5 MG TABLET PO SCH (06:00)
[2023-10-13] MEDS: PRENATAL VITAMINS W/ FOLIC ACID TABLET (FP) PO SCH (10:31)
[2023-10-13] MEDS: NICOTINE 21 MG/24 HOURS TOPICAL PATCH TD SCH (10:31)
[2023-10-13 11:34] LABS: HEMATOCRIT 42.3 % (35.4-49); HEMOGLOBIN 14.6 GM/dL (11.7-16.9); MCH 32.1 pg (25.7-33.7); MCHC 34.4 g/dl (32.0-35.9); MEAN CELL VOLUME 93.2 fl (80-96); MEAN PLT VOLUME 9.2 fl (7.5-11.1); PLATELET COUNT 288 10^3/uL (134-434); RBC 4.54 M/mm3 (4.00-5.60); RDW 13.9 % (11.9-15.9); WHITE BLOOD COUNT 6.1 K/mm3 (4.0-10.0)
[2023-10-13 11:39] LABS: POTASSIUM 3.5 mmol/L (3.5-5.1)
[2023-10-13 11:43] LABS: ALBUMIN 3.1 g/dl (3.4-5.0); BLOOD UREA NITROGEN 11.9 mg/dL (7-18)
[2023-10-13 11:44] LABS: CALCIUM 8.7 mg/dL (8.5-10.1)
[2023-10-13 11:46] LABS: CREATININE 0.9 mg/dL (0.55-1.3)
[2023-10-13] MEDS ORDERED: ALBUTEROL SO4 HFA INHALER IH PRN (13:10)
[2023-10-13] MEDS ORDERED: TRIMETHOBENZAMIDE HCL 200MG/2ML INJ IM ONE (13:11)
[2023-10-13 15:39] LABS: TOT PROT 6.6 g/dl (6.4-8.2)
[2023-10-13 15:40] LABS: BILIRUBIN,TOTAL 0.2 mg/dL (0.2-1)
[2023-10-13 16:51] VITALS: RESP 18
[2023-10-13 18:46] VITALS: BP 114/77; PULSE 106; TEMP 97.7
[2023-10-14] MEDS ORDERED: chlordiazePOXIDE HCL 25 MG CAPSULE PO SCH (05:00)
[2023-10-14] MEDS ORDERED: diazePAM 5 MG TABLET PO SCH (06:00)
[2023-10-15] MEDS ORDERED: chlordiazePOXIDE HCL 10 MG CAPSULE PO PRN
[2023-10-15] MEDS ORDERED: chlordiazePOXIDE HCL 10 MG CAPSULE PO SCH (05:00)
[2023-10-15] MEDS ORDERED: diazePAM 5 MG TABLET PO ONE (06:00)
[2023-10-16] MEDS ORDERED: chlordiazePOXIDE HCL 10 MG CAPSULE PO SCH (05:00)
[2023-10-17] MEDS ORDERED: chlordiazePOXIDE HCL 10 MG CAPSULE PO ONE (05:00)
== END 2023-10-13 19:43 | disposition left against medical advice (07) | DRG 770 ==
LOC: YASAS 03:43 → Y3N 05:16
PROVIDERS: ADMIT Allergy & Immunology; ATTEND Allergy & Immunology
PROC: HZ2ZZZZ Detoxification Services for Substance Abuse Treatment (ICD-10-PCS; principal; 2023-10-12)
DX: F10.230 Alcohol dependence with withdrawal, uncomplicated (principal); F14.20 Cocaine dependence, uncomplicated; F12.20 Cannabis dependence, uncomplicated; F17.210 Nicotine dependence, cigarettes, uncomplicated; F41.9 Anxiety disorder, unspecified; F32.A Depression, unspecified; J45.20 Mild intermittent asthma, uncomplicated; R11.2 Nausea with vomiting, unspecified; Z88.0 Allergy status to penicillin
CPT/HCPCS: 0241U-QW; 36415; 80053; 80307; 85027; 86780; 87635; 87811; Q0162

== ENCOUNTER 2024-04-11 03:43 | Inpatient (IN) | payer OTHER ==
[2024-04-11 04:25] VITALS: BMI 25.5
[2024-04-11] MEDS ORDERED: MAGNESIUM HYDROX 2400MG/30ML ORAL SUSPENSION 30 ML CUP PO PRN (05:24)
[2024-04-11] MEDS ORDERED: NALOXONE HCL 0.4 MG/ML VIAL IM PRN (05:24)
[2024-04-11] MEDS ORDERED: BENZONATATE 200 MG CAPSULE PO PRN (05:24)
[2024-04-11] MEDS ORDERED: MAG HYDROX/AL HYDROX/SIMETH 30 ML UNIT-DOSE CUP PO PRN (05:24)
[2024-04-11] MEDS ORDERED: POLYETHYLENE GLYCOL (HEALTHYLAX) 3350 17 GM PACKET PO PRN (05:24)
[2024-04-11] MEDS ORDERED: ONDANSETRON *ODT* 4 MG TABLET SL PRN (05:24)
[2024-04-11] MEDS ORDERED: NALOXONE (NARCAN) HCL 4 MG/0.1 ML SPRAY NS PRN (05:24)
[2024-04-11] MEDS ORDERED: BENZOCAINE/MENTHOL (CHLORASEPTIC ) LOZENGE MM PRN (05:24)
[2024-04-11] MEDS ORDERED: NICOTINE POLACRILEX 2 MG GUM BUC PRN (05:24)
[2024-04-11] MEDS ORDERED: IBUPROFEN 400 MG TABLET (FP) PO PRN (05:24)
[2024-04-11] MEDS ORDERED: IBUPROFEN 600 MG TABLET (FP) PO PRN (05:24)
[2024-04-11] MEDS ORDERED: hydrOXYzine PAMOATE 25 MG CAPSULE (FP) PO PRN (05:24)
[2024-04-11] MEDS ORDERED: DICYCLOMINE HCL 10 MG CAPSULE PO PRN (05:24)
[2024-04-11] MEDS: NICOTINE 21 MG/24 HOURS TOPICAL PATCH TD SCH (09:31)
[2024-04-11] MEDS: PRENATAL VITAMINS W/ FOLIC ACID TABLET (FP) PO SCH (09:31)
[2024-04-11] MEDS: chlordiazePOXIDE HCL 25 MG CAPSULE PO PRN (19:01)
[2024-04-11] MEDS: THIAMINE 100 MG TABLET PO SCH (22:23)
[2024-04-11] MEDS: MELATONIN 5 MG TABLETS PO SCH (22:23)
[2024-04-11] MEDS: chlordiazePOXIDE HCL 25 MG CAPSULE PO SCH (22:23)
[2024-04-11] MEDS: METHOCARBAMOL 500 MG TABLET PO PRN (22:23)
[2024-04-11] MEDS: ACETAMINOPHEN 325 MG TABLET (FP) PO PRN (22:24)
[2024-04-11] MEDS: guaiFENesin 600 MG TABLET.ER (FP) PO PRN (22:26)
[2024-04-12] MEDS: chlordiazePOXIDE HCL 25 MG CAPSULE PO SCH (05:54)
[2024-04-12 10:19] LABS: HEMATOCRIT 45.8 % (35.4-49); HEMOGLOBIN 15.8 GM/dL (11.7-16.9); MCH 33.8 pg (25.7-33.7); MCHC 34.6 g/dl (32.0-35.9); MEAN CELL VOLUME 97.7 fl (80-96); PLATELET COUNT 243 10^3/uL (134-434); RBC 4.69 M/mm3 (4.00-5.60); RDW 13.4 % (11.9-15.9); WHITE BLOOD COUNT 9.4 K/mm3 (4.0-10.0)
[2024-04-12 11:39] LABS: POTASSIUM 3.7 mmol/L (3.5-5.1)
[2024-04-12 11:58] LABS: CALCIUM 8.9 mg/dL (8.5-10.1)
[2024-04-12 11:59] LABS: ALBUMIN 3.3 g/dl (3.4-5.0); BLOOD UREA NITROGEN 8.5 mg/dL (7-18)
[2024-04-12 12:01] LABS: CREATININE 0.6 mg/dL (0.55-1.3)
[2024-04-12 12:02] LABS: BILIRUBIN,TOTAL 0.6 mg/dL (0.2-1); TOT PROT 6.8 g/dl (6.4-8.2)
[2024-04-12] MEDS ORDERED: ALBUTEROL SO4 HFA INHALER IH PRN (13:54)
[2024-04-12] MEDS: BISMUTH SUBSALICYLATE 262 MG/15 ML BTL PO PRN (16:05)
[2024-04-12] MEDS: LOPERAMIDE HCL 2 MG CAPSULE PO PRN (18:11)
[2024-04-13] MEDS: chlordiazePOXIDE HCL 10 MG CAPSULE PO SCH (05:45)
[2024-04-13 09:56] VITALS: BP 147/92; PULSE 77; RESP 16; TEMP 98.2
[2024-04-14] MEDS ORDERED: chlordiazePOXIDE HCL 10 MG CAPSULE PO PRN
[2024-04-14] MEDS ORDERED: chlordiazePOXIDE HCL 10 MG CAPSULE PO SCH (05:00)
[2024-04-15] MEDS ORDERED: chlordiazePOXIDE HCL 10 MG CAPSULE PO ONE (05:00)
== END 2024-04-13 13:38 | disposition home or self-care (01) | DRG 774 ==
LOC: YASAS 03:43 → Y3N 05:40
PROVIDERS: ADMIT Allergy & Immunology; ATTEND Surgery
PROC: HZ2ZZZZ Detoxification Services for Substance Abuse Treatment (ICD-10-PCS; principal; 2024-04-11)
DX: F10.230 Alcohol dependence with withdrawal, uncomplicated (principal); F14.20 Cocaine dependence, uncomplicated; F12.20 Cannabis dependence, uncomplicated; F17.210 Nicotine dependence, cigarettes, uncomplicated; F41.9 Anxiety disorder, unspecified; F32.A Depression, unspecified; J45.20 Mild intermittent asthma, uncomplicated; Z56.0 Unemployment, unspecified; Z59.00 Homelessness unspecified
CPT/HCPCS: 36415; 80053; 80305; 80307; 85027; 86780; 93005; 93010

== ENCOUNTER 2025-05-11 08:12 | Inpatient (IN) | payer OTHER ==
[2025-05-11 08:31] VITALS: BMI 27.3
[2025-05-11] MEDS ORDERED: BENZOCAINE/MENTHOL (CHLORASEPTIC ) LOZENGE MM PRN (08:43)
[2025-05-11] MEDS ORDERED: guaiFENesin 600 MG TABLET.ER (FP) PO PRN (08:43)
[2025-05-11] MEDS ORDERED: DICYCLOMINE HCL 10 MG CAPSULE PO PRN (08:43)
[2025-05-11] MEDS ORDERED: LOPERAMIDE HCL 2 MG CAPSULE PO PRN (08:43)
[2025-05-11] MEDS ORDERED: NICOTINE POLACRILEX 4 MG GUM BUC PRN (08:43)
[2025-05-11] MEDS ORDERED: POLYETHYLENE GLYCOL (HEALTHYLAX) 3350 17 GM PACKET PO PRN (08:43)
[2025-05-11] MEDS ORDERED: MAG HYDROX/AL HYDROX/SIMETH 30 ML UNIT-DOSE CUP PO PRN (08:43)
[2025-05-11] MEDS ORDERED: IBUPROFEN 400 MG TABLET (FP) PO PRN (08:43)
[2025-05-11] MEDS ORDERED: BENZONATATE 200 MG CAPSULE PO PRN (08:43)
[2025-05-11] MEDS ORDERED: MAGNESIUM HYDROX 2400MG/30ML ORAL SUSPENSION 30 ML CUP PO PRN (08:43)
[2025-05-11] MEDS ORDERED: ACETAMINOPHEN 325 MG TABLET (FP) PO PRN (08:43)
[2025-05-11] MEDS ORDERED: hydrOXYzine PAMOATE 25 MG CAPSULE (FP) PO PRN (08:43)
[2025-05-11] MEDS ORDERED: BISMUTH SUBSALICYLATE 524 MG/30 ML PO PRN (08:43)
[2025-05-11] MEDS ORDERED: NALOXONE (NARCAN) HCL 4 MG/0.1 ML SPRAY NS PRN (08:43)
[2025-05-11] MEDS ORDERED: ONDANSETRON *ODT* 4 MG TABLET ONE (09:04)
[2025-05-11] MEDS ORDERED: IBUPROFEN 600 MG TABLET (FP) PO ONE (09:04)
[2025-05-11] MEDS: IBUPROFEN 600 MG TABLET (FP) PO PRN (09:23)
[2025-05-11] MEDS: ONDANSETRON *ODT* 4 MG TABLET SL PRN (09:26)
[2025-05-11] MEDS: PRENATAL VITAMINS W/ FOLIC ACID TABLET (FP) PO SCH (10:28)
[2025-05-11] MEDS: NALTREXONE HCL 50 MG TABLET PO SCH (10:29)
[2025-05-11] MEDS: METHOCARBAMOL 500 MG TABLET PO PRN (22:12)
[2025-05-11] MEDS: THIAMINE 100 MG TABLET PO SCH (22:13)
[2025-05-11] MEDS: MELATONIN 5 MG TABLETS PO SCH (22:13)
[2025-05-12 10:18] LABS: GLUCOSE,RANDOM 77 mg/dL (74-106); TOT PROT 6.6 g/dl (6.4-8.2)
[2025-05-12 10:19] LABS: CO2 29 mmol/L (21-32)
[2025-05-12 10:20] LABS: ALK PHOS 143 U/L (40-150)
[2025-05-12 10:23] LABS: CREATININE 0.86 mg/dL (0.55-1.3); SGOT/AST 27 U/L (5-34); SGPT/ALT 16 U/L (0-55)
[2025-05-12 10:31] LABS: MCHC 32.2 g/dl (32.3-36.5); MEAN CELL VOLUME 94.6 fl (79.0-92.2); MEAN PLT VOLUME 11.1 fl (9.4-12.4); RDW 14.5 % (12.2-16.1)
[2025-05-12] MEDS: SODIUM POLYSTYRENE SULFONATE 15 GM/60 ML BOTTLE PO ONE (15:26)
[2025-05-12 21:26] VITALS: RESP 16
[2025-05-13 09:06] VITALS: BP 114/71; PULSE 70; TEMP 98.1
== END 2025-05-13 14:13 | disposition left against medical advice (07) | DRG 770 ==
LOC: YASAS 08:12 → Y6N 09:07
PROVIDERS: ADMIT Allergy & Immunology; ATTEND Allergy & Immunology
PROC: HZ2ZZZZ Detoxification Services for Substance Abuse Treatment (ICD-10-PCS; principal; 2025-05-11)
DX: F10.230 Alcohol dependence with withdrawal, uncomplicated (principal); F14.10 Cocaine abuse, uncomplicated; F12.20 Cannabis dependence, uncomplicated; F17.210 Nicotine dependence, cigarettes, uncomplicated
CPT/HCPCS: 36415; 80053; 80307; 84132; 85027; 86780; 93005; 93010; Q0162